=== PATIENT | female | born 1990 | race Asian ===

== ENCOUNTER 2021-07-04 14:46 | Emergency (ER) | payer BC, SELFPAY ==
--- NOTE | ~2021-07-04 | US_ITS ---
EXAMINATION: US ABDOMEN LIMITED CLINICAL INFORMATION: Right upper quadrant pain. COMPARISON: None TECHNIQUE: Real-time imaging of the right upper quadrant abdominal viscera. FINDINGS: PANCREAS: Normal. LIVER: Normal. The liver is normal in size. The liver contour is normal. Parenchymal echogenicity is normal. No focal hepatic lesion. There is no intrahepatic biliary duct dilatation seen. GALLBLADDER: Multiple gallbladder wall polyps are seen along with some echogenic debris in the gallbladder. The gallbladder is physiologically distended without evidence of stones wall thickening or pericholecystic fluid. COMMON BILE DUCT: Normal in caliber measuring 0.5 cm in diameter. RIGHT KIDNEY: Normal. No hydronephrosis. No renal calculi or focal parenchymal lesions. The kidney measures 11.3 cm in maximum dimension. FREE FLUID: None. US/US abdomen limited IMPRESSION: Gallbladder polyps. No gallstones or evidence of cholecystitis.
[2021-07-04 15:15] VITALS: BP 132/79; PULSE 94; RESP 16; TEMP 37.5; O2SAT 98; BMI 31.2
[2021-07-04 18:17] LABS: MANUAL DIFF FLAG NO
[2021-07-04 18:28] LABS: Basophils Percent Auto 0.3 % (0-2); Eosinophils Absolute Auto 0.1 X10*3/uL (0.0-0.4); Eosinophils Percent Auto 0.6 % (0-4); Hematocrit 40.8 % (37-47); Hemoglobin 13.9 g/dl (12.0-16.0); Imm Gran Abs Auto 0.04 X10*3/uL (0.00-0.03); Imm Gran Pct Auto 0.3 % (0.0-0.4); Lymphocytes Percent Auto 25.1 % (20-40); Mean Corpuscular HGB Conc 34.1 g/dl (31.0-35.0); Mean Corpuscular Hemoglobin 30.5 pg (27.0-33.0); Mean Corpuscular Volume 89.5 fL (80-98); Mean Platelet Volume 9.3 fL (9.4-12.3); Monocytes Absolute Auto 0.8 X10*3/uL (0.1-1.2); Monocytes Percent Auto 6.5 % (2-11); Neutrophils Absolute Auto 7.9 X10*3/uL (2.0-8.3); Neutrophils Percent Auto 67.2 % (45-73); Platelet Count 337 X10*3/uL (160-400); Red Blood Count 4.56 X10*6/uL (4.20-5.50); Red Cell Distribution Width 12.1 % (11.0-16.0); White Blood Count 11.8 X10*3/uL (4.8-10.8)
[2021-07-04 18:37] LABS: Anion Gap 14 (12-20); Blood Urea Nitrogen 11 mg/dL (9-16); Calcium 9.9 mg/dL (8.4-10.2); Carbon Dioxide 24 mmol/L (22-29); Chloride 104 mmol/L (96-108); Creatinine Clr Calc Pharmacy 100.6; Estimated Glomerular Filt Rate > 60; Glucose Random 88 mg/dL (60-115); Sodium 138 mmol/L (135-145)
[2021-07-04 20:15] LABS: Alanine Aminotransferase 12 U/L (0-31); Albumin Level 4.8 g/dL (3.5-5.0); Alkaline Phosphatase 56 U/L (39-117); Aspartate Amino Transferase 17 U/L (5-31); Bilirubin Direct 0.4 mg/dL (0.0-0.5); Bilirubin Total 0.9 mg/dL (0.0-1.0); Lipase 11 U/L (8-78); Total Protein 7.8 g/dL (6.5-8.0)
[2021-07-04 20:27] LABS: Appearance Urine CLEAR; Color Urine YELLOW; Glucose Urine UA NEG (NEG); Leukocyte Esterase Urine NEG (NEG); Nitrite Urine NEG (NEG); Specific Gravity - Urine 1.025 (1.005-1.025); UACC Culture Trigger NO; Urine Blood 2+ (NEG); Urine Ketones 40 MG/DL (NEG); Urine Protein TRACE MG/DL (NEG-TRACE)
[2021-07-04 20:29] LABS: UPreg QC Valid YES; Urine Pregnancy NEGATIVE (NEGATIVE)
--- NOTE | 2021-07-04 20:37 | ED_ITS ---
HPI - Abdominal Pain General Chief Complaint: Abdominal Pain Stated Complaint: abd pain - hx of gallbladder stones Time Seen by Provider: 07/04/21 19:26 Source: patient Mode of arrival: ambulatory Limitations: no limitations History of Present Illness HPI narrative: 31-year-old female here with complaints of right upper quadrant abdominal pain intermittent for the last week worsened with eating with occasional nausea. No vomiting, diarrhea, fevers, chills, urinary symptoms. Related Data Allergies Allergy/AdvReac Type Severity Reaction Status Date / Time No Known Allergies Allergy Verified 07/04/21 19:32 Review of Systems Review of Systems Yes all other systems are reviewed and are negative Constitutional: Reports no additional constitutional complaints, Denies body ache(s), Denies chills, Denies fever(s), Denies headache(s) and Denies weakness Eyes: Reports no additional eye complaints and Denies change in vision Reports system reviewed and no additional complaints, except as documented, Denies dizziness, Denies headache(s), Denies nasal congestion, Denies nasal discharge and Denies neck pain Cardiovascular: Reports no additional cardiovascular complaints, Denies chest pain, Denies leg edema and Denies dyspnea Respiratory: Reports no additional respiratory complaints, Denies cough and Denies dyspnea Gastrointestinal: Reports no additional gastrointestinal complaints, Denies abdominal pain, Denies diarrhea, Denies nausea and Denies vomiting Genitourinary: Reports no additional female genitourinary complaints and Denies urinary incontinence Musculoskeletal: Reports no additional musculoskeletal complaints, Denies back pain, Denies arthralgias, Denies joint swelling, Denies neck pain, Denies numbne ss and Denies tingling Skin/Breast: Reports system reviewed and no additional complaints, except as docu and Denies rash Reports system reviewed and no additional complaints, except as documented, Denies Abnormal speech present, Denies dizziness, Denies headache(s), Denies nu mbness, Denies tingling and Denies weakness Physical Exam Vital Signs: Vital Signs: Last Vital Signs Temp 98.7 F 07/04/21 20:52 Pulse 90 07/04/21 20:52 Resp 16 07/04/21 20:52 BP 125/77 07/04/21 20:52 Pulse Ox 98 07/04/21 20:52 Body Mass Index 31.2 Const: General: cooperative, healthy appearing, comfortable and no acute distress Orientation/consciousness: patient oriented x3 Limitations: no limitations HENMT: Head: Yes normal to inspection Ears: hearing grossly normal bilaterally General nose exam: Normal external nose present Face and sinus: Yes normal facial exam Mouth: Normal oral and palatal mucosa present Throat: Yes posterior oropharynx normal Eyes: General: appearance normal, both eyes and all related structures Pupils: Equal, round and reactive pupils present Neck: Neck: Yes normal visual inspection Chest: Chest palpation & inspection: normal inspection of the chest Resp: Effort & Inspection: normal respiratory effort Auscultation: clear to auscultation bilaterally Cardio: Rate: regular rate Rhythm: regular rhythm Peripheral pulses: Peripheral pulses 2+ throughout GI: Inspection: Yes normal to inspection Palpation (GI): Soft to palpation and Tenderness to palpation present (GI) (mild ruq-no rebound or guarding ) Auscultation: normal bowel sounds Back/Spine/Pelvis: Thoracic/Lumbar Spine: thoracic and lumbar spine normal to inspection Skin: General skin exam: no rashes or lesions noted Neuro: General: patient oriented x3, no focal motor deficits and normal sensation to monofilament Cranial nerves: Yes Equal, round and reactive pupils present Cognition (Neuro): normal cognition Speech: No Abnormal speech present Gait exam (Neuro): Normal gait present Motor exam (neuro): 5/5 motor strength present throughout Extrem: General: Yes normal to inspection Course Course Course Narrative: 31-year-old female here with complaints of intermittent right upper quadrant abdominal pain with some nausea for the last week. On exam she has mild tenderness but no rebound or guarding. Hemodynamically stable. Will check labs, UA, ultrasound. 2129-abdominal ultrasound shows some debris within the gallbladder and some polyps. No stones or acute cholecystitis. Labs including LFTs are normal. Urine shows no acute finding. Repeat abdominal exam benign Will refer patient to follow-up with surgery outpatient. Reviewed worrisome signs and symptoms of when to return to the emergency department. Comfortable discharge home. MDM - Abdominal Pain Medical Records Attestation: I reviewed the patient's medical records. Lab Data Attestation: I reviewed the patient's lab results. Result diagrams: 07/04/21 18:10 07/04/21 18:10 Labs: Lab Results 07/04/21 07/04/21 07/04/21 Range/Units 18:10 18:10 20:18 WBC 11.8 H (4.8-10.8) X10*3/uL RBC 4.56 (4.20-5.50) X10*6/uL Hgb 13.9 (12.0-16.0) g/dl Hct 40.8 (37-47) % MCV 89.5 (80-98) fL MCH 30.5 (27.0-33.0) pg MCHC 34.1 (31.0-35.0) g/dl RDW 12.1 (11.0-16.0) % Plt Count 337 (160-400) X10*3/uL MPV 9.3 L (9.4-12.3) fL Immature Gran % (Auto) 0.3 (0.0-0.4) % Neut % (Auto) 67.2 (45-73) % Lymph % (Auto) 25.1 (20-40) % Evangeline % (Auto) 6.5 (2-11) % Eos % (Auto) 0.6 (0-4) % Baso % (Auto) 0.3 (0-2) % Lymph # (Auto) 3.0 (1.2-4.9) X10*3/uL Evangeline # (Auto) 0.8 (0.1-1.2) X10*3/uL Eos # (Auto) 0.1 (0.0-0.4) X10*3/uL Baso # (Auto) 0.0 (0.0-0.2) X10*3/uL Abs Immat Gran (auto) 0.04 H (0.00-0.03) X10*3/uL Absolute Neuts (auto) 7.9 (2.0-8.3) X10*3/uL Absolute Nucleated RBC 0.000 (0.0-0.012) X10*3/uL Nucleated RBC % (auto) 0.0 (0.0-0.2) /100WBC Sodium 138 (135-145) mmol/L Potassium 4.0 (3.3-5.1) mmol/L Chloride 104 (96-108) mmol/L Carbon Dioxide 24 (22-29) mmol/L Anion Gap 14 (12-20) BUN 11 (9-16) mg/dL Creatinine 0.72 (0.5-1.4) mg/dL Estim Creat Clear Calc 100.6 Estimated GFR > 60 Random Glucose 88 (60-115) mg/dL Calcium 9.9 (8.4-10.2) mg/dL Total Bilirubin 0.9 (0.0-1.0) mg/dL Direct Bilirubin 0.4 (0.0-0.5) mg/dL AST 17 (5-31) U/L ALT 12 (0-31) U/L Alkaline Phosphatase 56 (39-117) U/L Total Protein 7.8 (6.5-8.0) g/dL Albumin 4.8 (3.5-5.0) g/dL Lipase 11 (8-78) U/L Urine Color YELLOW Urine Appearance CLEAR Urine pH 6.0 (5.0-8.0) Ur Specific Cyclone 1.025 (1.005-1.025) Urine Protein TRACE (NEG-TRACE) MG/DL Urine Glucose (UA) NEG (NEG) MG/DL Urine Ketones 40 (NEG) MG/DL Urine Blood 2+ H (NEG) Urine Nitrite NEG (NEG) Ur Leukocyte Esterase NEG (NEG) Urine RBC 0-2 (0) /HPF Urine WBC 0-2 (0-4) /HPF Ur Squamous Epith Cells TRACE /LPF Urine Bacteria 1+ /LPF Urine Mucus 1+ /LPF Urine Test (NEGATIVE) 07/04/21 Range/Units 20:18 WBC (4.8-10.8) X10*3/uL RBC (4.20-5.50) X10*6/uL Hgb (12.0-16.0) g/dl Hct (37-47) % MCV (80-98) fL MCH (27.0-33.0) pg MCHC (31.0-35.0) g/dl RDW (11.0-16.0) % Plt Count (160-400) X10*3/uL MPV (9.4-12.3) fL Immature Gran % (Auto) (0.0-0.4) % Neut % (Auto) (45-73) % Lymph % (Auto) (20-40) % Evangeline % (Auto) (2-11) % Eos % (Auto) (0-4) % Baso % (Auto) (0-2) % Lymph # (Auto) (1.2-4.9) X10*3/uL Evangeline # (Auto) (0.1-1.2) X10*3/uL Eos # (Auto) (0.0-0.4) X10*3/uL Baso # (Auto) (0.0-0.2) X10*3/uL Abs Immat Gran (auto) (0.00-0.03) X10*3/uL Absolute Neuts (auto) (2.0-8.3) X10*3/uL Absolute Nucleated RBC (0.0-0.012) X10*3/uL Nucleated RBC % (auto) (0.0-0.2) /100WBC Sodium (135-145) mmol/L Potassium (3.3-5.1) mmol/L Chloride (96-108) mmol/L Carbon Dioxide (22-29) mmol/L Anion Gap (12-20) BUN (9-16) mg/dL Creatinine (0.5-1.4) mg/dL Estim Creat Clear Calc Estimated GFR Random Glucose (60-115) mg/dL Calcium (8.4-10.2) mg/dL Total Bilirubin (0.0-1.0) mg/dL Direct Bilirubin (0.0-0.5) mg/dL AST (5-31) U/L ALT (0-31) U/L Alkaline Phosphatase (39-117) U/L Total Protein (6.5-8.0) g/dL Albumin (3.5-5.0) g/dL Lipase (8-78) U/L Urine Color Urine Appearance Urine pH (5.0-8.0) Ur Specific Cyclone (1.005-1.025) Urine Protein (NEG-TRACE) MG/DL Urine Glucose (UA) (NEG) MG/DL Urine Ketones (NEG) MG/DL Urine Blood (NEG) Urine Nitrite (NEG) Ur Leukocyte Esterase (NEG) Urine RBC (0) /HPF Urine WBC (0-4) /HPF Ur Squamous Epith Cells /LPF Urine Bacteria /LPF Urine Mucus /LPF Urine Test NEGATIVE (NEGATIVE) Imaging Data US - abdomen: Attestation: I personally reviewed and interpreted this imaging study as follows: Radiologist's impression: FINDINGS: PANCREAS: Normal. LIVER: Normal. The liver is normal in size. The liver contour is normal. Parenchymal echogenicity is normal. No focal hepatic lesion. There is no intrahepatic biliary duct dilatation seen. GALLBLADDER: Multiple gallbladder wall polyps are seen along with some echogenic debris in the gallbladder. The gallbladder is physiologically distended without evidence of stones wall thickening or pericholecystic fluid. COMMON BILE DUCT: Normal in caliber measuring 0.5 cm in diameter. RIGHT KIDNEY: Normal. No hydronephrosis. No renal calculi or focal parenchymal lesions. The kidney measures 11.3 cm in maximum dimension. FREE FLUID: None. US/US abdomen limited IMPRESSION: Gallbladder polyps. No gallstones or evidence of cholecystitis. Discharge Plan Discharge Clinical Impression: Gallbladder polyp, Abdominal pain Patient Disposition: Home, Self-Care Instructions: Biliary Colic (ED), Abdominal Pain (ED) Additional Instructions: Low-fat diet Follow-up with primary care doctor and surgery Referrals: Hortencia Millan NP [Primary Care Provider] - 2 days Lili Santiago MD [Physician] - 2 days Interventions: ED Discharge Assessment Last Done: 07/04/21 21:21 Discharge Date/Time: 07/04/21 21:22 [facility] Past Medical History Attestation statement: The following information was validated with the patient. Source: old records reviewed and nursing notes reviewed Social History Social History Advance Directives: No Advance Directives Information Provided: No
[2021-07-04 20:52] VITALS: BP 125/77; PULSE 90; RESP 16; TEMP 37.1; O2SAT 98
[2021-07-04 20:53] LABS: Bacteria Urine 1+ /LPF; Mucus Urine 1+ /LPF; RBC Urine 0-2 /HPF (0); Squamous Epithelial Cell Urine TRACE /LPF; WBC Urine 0-2 /HPF (0-4)
== END 2021-07-04 21:22 | disposition home or self-care (01) ==
PROVIDERS: Nurse Practitioner Family; Emergency Provider Emergency Medicine; PCP Nurse Practitioner Family
DX: K82.4 Cholesterolosis of gallbladder (principal); R10.11 Right upper quadrant pain; Z79.899 Other long term (current) drug therapy
CPT/HCPCS: 36415; 76705; 80048; 80076; 81001; 81025; 83690; 85025; 99283

== ENCOUNTER → 2021-08-04 14:05 | Outpatient (BNVA) | payer BC, SELFPAY | PROVIDERS: PCP Nurse Practitioner Family; Referring Provider Nurse Practitioner Family; Visit Provider Surgery ==

== ENCOUNTER 2022-05-19 07:40 | Outpatient (REF) | payer BC, SELFPAY ==
[2022-05-19 11:52] LABS: MANUAL DIFF FLAG NO
[2022-05-19 11:56] LABS: Appearance Urine CLEAR; Color Urine YELLOW; Glucose Urine UA NEG (NEG); Leukocyte Esterase Urine NEG (NEG); Nitrite Urine NEG (NEG); UACC Culture Trigger NO; Urine Blood 2+ (NEG); Urine Ketones NEG (NEG); Urine Protein NEG (NEG-TRACE)
[2022-05-19 12:09] LABS: Basophils Percent Auto 0.3 % (0-2); Eosinophils Absolute Auto 0.1 X10*3/uL (0.0-0.4); Eosinophils Percent Auto 1.1 % (0-4); Hemoglobin 13.6 g/dl (12.0-16.0); Imm Gran Abs Auto 0.03 X10*3/uL (0.00-0.03); Imm Gran Pct Auto 0.3 % (0.0-0.4); Lymphocytes Absolute Auto 1.9 X10*3/uL (1.2-4.9); Lymphocytes Percent Auto 20.5 % (20-40); Mean Corpuscular HGB Conc 33.2 g/dl (31.0-35.0); Mean Corpuscular Hemoglobin 29.4 pg (27.0-33.0); Mean Corpuscular Volume 88.7 fL (80.0-98.0); Mean Platelet Volume 9.7 fL (9.4-12.3); Monocytes Absolute Auto 0.8 X10*3/uL (0.1-1.2); Monocytes Percent Auto 9.1 % (2-11); Neutrophils Absolute Auto 6.3 x10*3/uL (2.0-8.3); Neutrophils Percent Auto 68.7 % (45-73); Platelet Count 401 X10*3/uL (160-400); Red Blood Count 4.62 X10*6/uL (4.20-5.50); Red Cell Distribution Width 12.4 % (11.0-16.0); White Blood Count 9.1 X10*3/uL (4.8-10.8)
[2022-05-19 12:36] LABS: Alanine Aminotransferase 14 U/L (0-31); Albumin Level 4.6 g/dL (3.5-5.0); Alkaline Phosphatase 73 U/L (39-117); Anion Gap 13 (12-20); Aspartate Amino Transferase 16 U/L (5-31); Bilirubin Total 0.8 mg/dL (0.0-1.0); Blood Urea Nitrogen 7 mg/dL (9-16); Calcium 9.2 mg/dL (8.4-10.2); Carbon Dioxide 25 mmol/L (22-29); Chloride 103 mmol/L (96-108); Cholesterol 173 mg/dL; Estimated Glomerular Filt Rate > 60; Glucose Fasting 92 mg/dL (60-99); HDL Cholesterol 58 mg/dL; LDL Cholesterol Calculated 96 mg/dl; Potassium 3.7 mmol/L (3.3-5.1); Sodium 137 mmol/L (135-145); Total Protein 7.8 g/dL (6.5-8.0); Triglycerides 97 mg/dL
[2022-05-19 12:37] LABS: Squamous Epithelial Cell Urine 2+ /LPF; WBC Urine 0-2 /HPF (0-4)
[2022-05-19 12:47] LABS: TSH reflex Free T4 0.99 uIU/mL (0.32-4.0)
== END 2022-05-19 07:41 | disposition home or self-care (01) ==
LOC: HO.HMGCLDS 07:40
PROVIDERS: PCP Nurse Practitioner Family; Visit Provider Nurse Practitioner Family
DX: Z00.00 Encounter for general adult medical examination without abnormal findings (principal)
CPT/HCPCS: 36415; 80053; 80061; 81001; 84443; 85025

== ENCOUNTER 2022-06-22 13:30 | Outpatient (REF) | payer BC, SELFPAY ==
[2022-06-22 16:52] LABS: Urine Cytology See Pathology rpt
[2022-06-22 16:58] LABS: Appearance Urine Clear; Color Urine Yellow; Glucose Urine UA Negative (Negative); Leukocyte Esterase Urine Negative (Negative); Nitrite Urine Negative (Negative); PH 7.5 (5.0-9.0); Specific Gravity - Urine <= 1.005 (1.005-1.025); Urine Blood Negative (Negative); Urine Ketones Negative (Negative); Urine Protein Negative (Neg-Trace)
[2022-06-22 17:02] LABS: Bacteria Urine None Seen (None Seen); Hyaline Casts Urine 0-2 /LPF (0-2); RBC Urine 0-2 /HPF (0-2); Squamous Epithelial Cell Urine 0-2 /HPF (0-2); WBC Urine 0-5 /HPF (0-5)
== END 2022-06-22 13:31 | disposition home or self-care (01) ==
LOC: HO.HMGCLDS 13:30
PROVIDERS: PCP Nurse Practitioner Family; Visit Provider Nurse Practitioner Family
DX: R31.29 Other microscopic hematuria (principal)
CPT/HCPCS: 81001; 87086; 88112

== ENCOUNTER 2022-07-20 13:27 | Outpatient (REF) | payer BC, SELFPAY ==
--- NOTE | ~2022-07-20 | US_ITS ---
EXAMINATION: US ABDOMEN LIMITED CLINICAL INFORMATION: Cholesterolosis of the gallbladder. COMPARISON: Ultrasound abdomen limited 07/04/2021. TECHNIQUE: Real-time imaging of the right upper quadrant abdominal viscera. FINDINGS: PANCREAS: Normal. LIVER: Normal. The liver is normal in size. The liver contour is normal. Parenchymal echogenicity is normal. No focal hepatic lesion. There is no intrahepatic biliary duct dilatation seen. GALLBLADDER: Normal. The gallbladder is physiologically distended without evidence of stones, sludge, polyps, wall thickening or pericholecystic fluid. COMMON BILE DUCT: Normal in caliber measuring 0.48 cm in diameter. RIGHT KIDNEY: Normal. No hydronephrosis. No renal calculi or focal parenchymal lesions. The kidney measures 10.4 cm in maximum dimension. FREE FLUID: None. US/US abdomen limited IMPRESSION: Unremarkable limited abdomen ultrasound. No gallbladder polyps seen on this time. Could the polyps seen on the previous exam represent hypertrophic mucosa or stones at that time.
== END 2022-07-20 13:28 | disposition home or self-care (01) ==
LOC: HO.US 13:27
PROVIDERS: Absent Provider Nurse Practitioner Family; PCP Nurse Practitioner Family; Visit Provider Surgery
DX: K82.4 Cholesterolosis of gallbladder (principal)
CPT/HCPCS: 76705

== ENCOUNTER 2022-09-23 07:34 | Emergency (ER) | payer BC, SELFPAY ==
--- NOTE | ~2022-09-23 | US_ITS ---
EXAMINATION: US RETROPERITONEAL LIMITED (RENAL ONLY) CLINICAL INFORMATION: Right flank pain and urinary symptoms. Evaluate for stone pyelonephritis.. COMPARISON: Prior ultrasound most recent July 2022. TECHNIQUE: Grayscale Doppler and color flow imaging of the kidneys was performed. FINDINGS: RIGHT KIDNEY: 11.4 x 4.3 x 5.7 cm (SAG x AP x TRV). The kidney is normal in size, contour, and echogenicity. Renal cortical thickness is normal. No calculi or focal parenchymal lesions. No hydronephrosis. LEFT KIDNEY: 10.8 x 5.1 x 6.6 cm (SAG x AP x TRV). The kidney is normal in size, contour, and echogenicity. Renal cortical thickness is normal. No calculi or focal parenchymal lesions. No hydronephrosis. US/US renal BI IMPRESSION: Normal renal ultrasound. No urinary tract calculi or evidence for pyelonephritis
[2022-09-23 07:35] VITALS: BP 146/89; PULSE 96; RESP 20; TEMP 36.7; O2SAT 100; BMI 29.2
[2022-09-23 07:56] LABS: Appearance Urine Clear; Color Urine Yellow; Glucose Urine UA Negative (Negative); Leukocyte Esterase Urine Negative (Negative); Nitrite Urine Negative (Negative); Specific Gravity - Urine 1.015 (1.005-1.025); UMIC TRIGGER UACC YES; Urine Blood Moderate (2+) (Negative); Urine Ketones Negative (Negative); Urine Protein Negative (Neg-Trace)
[2022-09-23 08:00] LABS: UPreg QC Valid YES; Urine Pregnancy NEGATIVE (NEGATIVE)
[2022-09-23 08:01] LABS: Bacteria Urine None Seen (None Seen); Hyaline Casts Urine 0-2 /LPF (0-2); Squamous Epithelial Cell Urine 0-2 /HPF (0-2); WBC Urine 0-5 /HPF (0-5)
--- NOTE | 2022-09-23 08:03 | ED_ITS ---
HPI - Female Genitourinary General Chief complaint: Urogenital-Female Stated complaint: back pain Time Seen by Provider: 09/23/22 08:02 Source: patient Mode of arrival: ambulatory Limitations: no limitations History of Present Illness HPI Narrative: 32 yo female w/ PMHx pyelonephritis presenting to ED c/o 2 day hx of urinary frequency and flank pain. Denies dysuria, blood in the urine, vaginal discharge/bleeding, irregular menstrual periods, new sexual contact, fevers, chills, headache, SOB, chest pain, abd pain, N/V/D, body aches, rashes, or skin changes. MD elicited complaint: flank pain Onset (ago): day(s) Related Data Home Medications Medication Instructions Recorded Confirmed cholecalciferol (vitamin D3) 50 50 mcg PO DAILY 08/04/21 05/18/22 mcg (2,000 unit) capsule Allergies Allergy/AdvReac Type Severity Reaction Status Date / Time No Known Allergies Allergy Verified 09/19/22 10:42 Review of Systems Review of Systems: Constitutional: No Fever, No Chills, No Night Sweats, No Fatigue, No Malaise ENT/Mouth: No Ear Pain, No Nasal Congestion Eyes: No Eye Pain, No Swelling, No Redness Cardiovascular: No Chest Pain, No SOB, No Palpitations Respiratory: No Cough, No Sputum, No Dyspnea Gastrointestinal: No Nausea, No Vomiting, No Diarrhea, No Constipation, No Abdominal pain Genitourinary: No irregular bleeding, No Dysuria, + Urinary Frequency, No Hematuria, No Urinary Incontinence/retention, No Urgency, + R Flank Pain Musculoskeletal: No joint pain, No Myalgias, No Joint Swelling Skin: No Skin Lesions, No rash Neuro: No Weakness, No Numbness, No Paresthesias, No Headache Yes all other systems are reviewed and are negative Constitutional: Constitutional: Reports as per [facility] [place] Past Medical History Attestation statement: The following information was validated with the patient. Surgical History History of delivery (10/04/19) Social History Social History Housing: House Alcohol intake: current Patient Tobacco Use Status: Never used Tobacco e-Cigarette/Vaping Use: Never Used Second Hand Smoke Exposure: No Advance Directives: No Advance Directives Information Provided: No service: No Current occupational status: employed and unemployed Cognitive needs: No Hearing needs: No Vision needs: No Physical Exam Vital Signs: Vital Signs: Last Vital Signs Temp 98.1 F 09/23/22 07:35 Pulse 96 09/23/22 07:35 Resp 20 09/23/22 07:35 BP 146/89 H 09/23/22 07:35 Pulse Ox 100 09/23/22 07:35 O2 Del Method 09/23/22 07:35 BMI result Body Mass Index 29.2 Const: General: cooperative, healthy appearing, comfortable and no acute distress Orientation/consciousness: patient oriented x3 Limitations: no limitations HEENT: Head: Yes normal to inspection and Yes atraumatic Ears: hearing grossly normal bilaterally General nose exam: Normal external nose present Face and sinus: Yes normal facial exam Eyes: General: appearance normal, both eyes and all related structures Neck: Neck: Yes normal visual inspection Chest: Chest palpation & inspection: normal inspection of the chest Resp: Effort & Inspection: normal respiratory effort and no respiratory distress Auscultation: clear to auscultation bilaterally Cardio: Rate: regular rate Heart sounds: S1 normal heart sound present and S2 normal heart sound present GI: Inspection: Yes normal to inspection Palpation (GI): Soft to palpation, nontender, no guarding and not rigid : General: Yes CVA tenderness on the right Back/Spine/Pelvis: Back: CVA tenderness Thoracic/Lumbar Spine: thoracic and lumbar spine normal to inspection, No paraspinal muscle tenderness, No thoracic spinal tenderness and No lumbar spinal tenderness Skin: General skin exam: no rashes or lesions noted Rashes: no rashes Neuro: General: patient oriented x3 and tone normal Gait exam (Neuro): Normal gait present Extrem: General: Yes normal to inspection Course Course Course Narrative: -1000--labs unremarkable. UA with blood and rbc's, not infected US renal BI IMPRESSION: Normal renal ultrasound. No urinary tract calculi or evidence for pyelonephritis ? > Results discussed with patient including worrisome signs and symptoms and strict return precautions, and when to return to the emergency department. They verbalized understanding and feel safe for discharge at this time. Medical Decision Making Medical Decision Making MDM Narrative: 32 yo female w/ PMHx pyelonephritis presenting to ED c/o 2 day hx of urinary frequency and flank pain. On exam vital signs stable, NAD, nontoxic appearing, abdomen soft/nontender, mild R CVAT noted. Concern for UTI vs cystitis vs pyelonephritis vs renal stone. Low suspicion for ovarian torsion/appendicitis/diverticulitis or cholecystitis Plan: UA, , labs, renal ultrasound Differential Diagnoses: Differential diagnosis (as above) Lab Attestation: I reviewed the patient's lab results. Discharge Plan Discharge Clinical Impression: Microscopic hematuria Patient Disposition: Home, Self-Care Instructions: Hematuria (ED) Prescriptions: No Action cholecalciferol (vitamin D3) 50 mcg (2,000 unit) capsule 50 mcg PO DAILY
[2022-09-23 09:06] LABS: MANUAL DIFF FLAG NO
[2022-09-23 09:10] LABS: Basophils Percent Auto 0.2 % (0-2); Eosinophils Absolute Auto 0.1 X10*3/uL (0.0-0.4); Eosinophils Percent Auto 0.8 % (0-4); Imm Gran Abs Auto 0.03 X10*3/uL (0.00-0.03); Imm Gran Pct Auto 0.3 % (0.0-0.4); Mean Corpuscular HGB Conc 33.3 g/dl (31.0-35.0); Mean Corpuscular Hemoglobin 28.8 pg (27.0-33.0); Mean Corpuscular Volume 86.5 fL (80.0-98.0); Mean Platelet Volume 9.4 fL (9.4-12.3); Monocytes Absolute Auto 0.6 X10*3/uL (0.1-1.2); Monocytes Percent Auto 5.9 % (2-11); Neutrophils Absolute Auto 8.1 x10*3/uL (2.0-8.3); Neutrophils Percent Auto 74.8 % (45-73); Platelet Count 349 X10*3/uL (160-400); Red Blood Count 4.51 X10*6/uL (4.20-5.50); Red Cell Distribution Width 12.7 % (11.0-16.0); White Blood Count 10.9 X10*3/uL (4.8-10.8)
[2022-09-23 09:30] LABS: Alanine Aminotransferase 14 U/L (0-31); Albumin Level 4.4 g/dL (3.5-5.0); Alkaline Phosphatase 60 U/L (39-117); Anion Gap 12 (12-20); Aspartate Amino Transferase 14 U/L (5-31); Bilirubin Direct 0.3 mg/dL (0.0-0.5); Blood Urea Nitrogen 11 mg/dL (9-16); Calcium 9.3 mg/dL (8.4-10.2); Carbon Dioxide 24 mmol/L (22-29); Chloride 105 mmol/L (96-108); Creatinine Clr Calc Pharmacy 115.9; Estimated Glomerular Filt Rate > 60; Glucose Random 100 mg/dL (60-115); Potassium 3.7 mmol/L (3.3-5.1); Sodium 137 mmol/L (135-145); Total Protein 7.3 g/dL (6.5-8.0)
== END 2022-09-23 10:12 | disposition home or self-care (01) ==
PROVIDERS: Physician Assistant; Emergency Provider Emergency Medicine; PCP Nurse Practitioner Family
DX: R31.29 Other microscopic hematuria (principal); R10.9 Unspecified abdominal pain
CPT/HCPCS: 36415; 76775; 80048; 80076; 81001; 81025; 85025; 99282; 99284

== ENCOUNTER 2022-09-26 15:16 | Outpatient (REF) | payer BC, SELFPAY ==
[2022-09-27 11:51] LABS: BV Int Neg Control Negative (Negative); BV Int Pos Control Positive (Positive)
== END 2022-09-26 15:17 | disposition home or self-care (01) ==
LOC: HO.LNP 15:16
PROVIDERS: Visit Provider Advanced Practice Midwife
DX: Z01.419 Encounter for gynecological examination (general) (routine) without abnormal findings (principal); R31.9 Hematuria, unspecified
CPT/HCPCS: 81003; 87480; 87510; 87660

== ENCOUNTER 2022-09-26 15:30 | Outpatient (REF) | payer BC, SELFPAY ==
[2022-09-26 17:16] LABS: Appearance Urine Clear; Color Urine Yellow; Glucose Urine UA Negative (Negative); Leukocyte Esterase Urine Negative (Negative); Nitrite Urine Negative (Negative); UMIC TRIGGER UACC YES; Urine Blood Small (1+) (Negative); Urine Ketones Negative (Negative); Urine Protein Negative (Neg-Trace)
[2022-09-26 17:31] LABS: Bacteria Urine None Seen (None Seen); Hyaline Casts Urine 0-2 /LPF (0-2); Squamous Epithelial Cell Urine 0-2 /HPF (0-2); WBC Urine 0-5 /HPF (0-5)
[2022-09-27 09:25] LABS: CT PCR NOT DETECTED (Not Detect.); NG PCR NOT DETECTED (Not Detect.)
== END 2022-09-26 15:31 | disposition home or self-care (01) ==
LOC: HO.LAB 15:30
PROVIDERS: PCP Nurse Practitioner Family; Visit Provider Advanced Practice Midwife
DX: Z11.3 Encounter for screening for infections with a predominantly sexual mode of transmission (principal); R31.9 Hematuria, unspecified
CPT/HCPCS: 81001; 81003; 87491; 87591

== ENCOUNTER → 2022-10-03 07:29 | Outpatient (REF) | payer BC, SELFPAY ==
--- NOTE | 2022-10-03 07:30 | HM_ITS ---
* Total monitoring time about 3 days. * Underlying rhythm is sinus. Average ventricular rate 91/Min. Range 59 to 140/Min. * About 23% of the time, rate > 100/Min. * No significant ectopy. * No significant tachyarrhythmias. * No significant bradycardia or pauses. * Rapid/fast heartbeat noted in diary correlates with sinus tachycardia. MTDD
== END ==
LOC: HO.CARD 07:29
PROVIDERS: PCP Nurse Practitioner Family; Visit Provider Nurse Practitioner Family
DX: R00.2 Palpitations (principal)
CPT/HCPCS: 93242

== ENCOUNTER 2022-12-14 08:59 | Outpatient (REF) | payer BC, SELFPAY ==
[2022-12-14 16:38] LABS: Urine Cytology See Pathology rpt
== END 2022-12-14 09:00 | disposition home or self-care (01) ==
LOC: HO.LAB 08:59
PROVIDERS: PCP Nurse Practitioner Family; Visit Provider Nurse Practitioner Family
DX: R31.29 Other microscopic hematuria (principal); R10.31 Right lower quadrant pain; R10.32 Left lower quadrant pain
CPT/HCPCS: 88112

== ENCOUNTER 2022-12-14 15:00 | Outpatient (RCR) | payer BC, SELFPAY ==
--- NOTE | 2022-11-30 17:00 | MHC.PT.EP ---
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 Pt is deemed an appropriate candidate to receive skilled PT services to address their physical impairments in order to improve their functional ability. Frequency and Duration: The patient will be seen 1 x / wk x 5 wks. Short Term Goals: initiate HEP Intermediate Goals: Pt will report at least 50% improvement in ear ringing symptom. Pt will no longer demonstrate S pattern of motion with mandibular depression AROM. Pt will report no longer having discomfort with prolonged chewing. I with home program. Treatment Plan: Modalities to reduce pain, spasms and effusion. Manual therapy to restore motion and function. Therapeutic exercise to improve strength and flexibility. Neuromuscular re-education for posture and balance. Therapeutic activities to return to functional activities of daily living. Electronically signed by: Lazaro Lucas PT. Please sign and return to therapist. Thank you for your referral.
--- NOTE | 2023-01-23 15:52 | MHC.PT.DC ---
[facility] [place] Office [place] Office [place] Office [address] Edy Martell [address] [phone] F: [phone] F: [phone] F: [phone] F: [phone] Physical Therapy Discharge Report Diagnosis: TMD Date of Surgery: Date of Evaluation: 11/23/22 Date of Discharge: 01/23/23 Treatments to Date: 3 Cancellations to Date: No Shows to Date: Discharge Status: Independent with HEP Patient Elected to Stop Discharge Summary: From last treatment note; Pt did not follow up with therapy after her last visit: Reviewed rocobado series and addressed questions. reviewed cervical stretches. She now presents with J presentation of jaw which may be an improvement form the S shape initially. She reports her jaw clicking is less, her L ear ringing is a little less though has been experiencing some ringing of her R oddly. Added postural strengthening exercises and issued G TB. Pt largely I with her program and may wish to DC after today or her next visit and will call. Electronically signed by: Lazaro Lucas PT. Please sign and return to therapist. Thank you for your referral.
== END 2023-01-23 15:52 | disposition home or self-care (01) ==
LOC: HO.PTCHIC 15:00
PROVIDERS: PCP Nurse Practitioner Family; Visit Provider Nurse Practitioner Family
DX: M26.602 Left temporomandibular joint disorder, unspecified (principal)
CPT/HCPCS: 97110; 97140; 97161

== ENCOUNTER → 2023-01-11 09:20 | Outpatient (BNVA) | payer BC, SELFPAY | PROVIDERS: PCP Nurse Practitioner Family; Visit Provider Urology | DX: R31.29 Other microscopic hematuria (principal) | CPT/HCPCS: 52000 ==

== ENCOUNTER 2023-06-06 10:20 | Outpatient (AMB) | payer BC, SELFPAY ==
[2023-06-06 10:28] VITALS: BP 122/78; PULSE 88; O2SAT 98; BMI 29.6
--- NOTE | 2023-06-06 10:28 | A.OFFPC_ITS ---
Vital Signs 06/06/23 10:28 Height 5 ft 4 in Weight 172 lb 6 oz BMI 29.6 BP 122/78 Blood Pressure Location Rt brachial Position Sitting Pulse 88 Pulse Source Pulse Oximeter Pulse Oximetry (%) 98 Oxygen Delivery Method Room Air Intake Visit Reasons: PE Allergies lavender (Lavandula angustifolia) Adverse Reaction (Mild, Verified 06/06/23 10:31) unknown Medication List - Last Reconciled 06/06/23 by ILIANA Serna betamethasone dipropionate 0.05% 1 appl topical DAILY PRN cholecalciferol (vitamin D3) 50 mcg PO DAILY metoprolol succinate ER 12.5 mg (1/2 x 25 mg) PO DAILY 30 days Tobacco use date assessed: 06/06/23 Dental Screening Dental Screen Date: 06/06/23 Did you have a dental visit in the last 12 months?: Yes Did you have a dental problem in the last 6 months where you did not have access to dental care?: No Was dental information given to patient?: Patient has dentist HPI PE HPI Details Pt is here for a PE. Will order labs. 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 Pt reports ? anxiety. She reports that this is most likely the cause of her tachycardia. Holter showed sinus tach, Will start metoprolol 12.5mg (which was sent previously but she had not tried it). She will follow up with me via the portal in the very near future, and i will see her again in 6 months. Any questions or concerns she knows to call the office. [facility] Surgical History History of delivery (10/04/19) Social History Housing: House Alcohol intake: current Patient Tobacco Use Status: Never used Tobacco e-Cigarette/Vaping Use: Never Used Second Hand Smoke Exposure: No service: No Current occupational status: employed and unemployed Cognitive needs: No Hearing needs: No Vision needs: No Female Reproductive History Menstrual Age of Menarche: 12 Questionnaire Thrive Questionnaire Date Thrive assessed: 05/18/22 GEOVANI-7 AMB Questionnaire GEOVANI-7 Date GEOVANI - 7 assessed: 05/18/22 Source: Developed by Drs. Miguel LDaniela Sutton, Esdras Singh and colleagues, with an educational luis manuel from [employer]. Review of Systems Const Denies chills and Denies fever(s) Eyes Denies blurry vision ENT Denies vertigo, Denies dizziness and Denies sore throat Card Denies chest pain at rest, Denies chest pain with activity, Denies diaphoresis, Denies dyspnea and Denies dyspnea on exertion Resp Denies cough, Denies dyspnea, Denies dyspnea on exertion and Denies wheezing GI Denies abdominal pain, Denies melena, Denies hematochezia, Denies constipation, Denies diarrhea and Denies loose stools Denies hematuria Musc Denies numbness and Denies tingling Skin/Breast Denies lesions Neuro Denies vertigo, Denies dizziness, Denies numbness and Denies tingling Psych Denies anxiety, Denies depression, Denies homicidal ideation, Denies suicidal ideation and Denies other (substance abuse) Aller/Immun Denies wheezing Physical exam (Primary Care) Vital Signs: Last Vital Signs Pulse 88 06/06/23 10:28 BP 122/78 06/06/23 10:28 Pulse Ox 98 06/06/23 10:28 Oxygen Delivery Method Room Air 06/06/23 10:28 BMI result Body Mass Index 29.6 Tobacco/Smoking Status: Tobacco use Status Tobacco use date assessed 06/06/23 06/06/23 10:34 Patient Tobacco Use Status Never used Tobacco 06/06/23 10:28 e-Cigarette/Vaping Use Never Used 06/06/23 10:28 Thrive Assessment: Date of Thrive Assessment Date Thrive assessed 05/18/22 06/06/23 10:28 Const General: cooperative Nutritional Appearance: well nourished Orientation/consciousness: patient oriented x3 HENMT Head: Yes normal to inspection, Yes normocephalic and Yes atraumatic Ears: TM's normal bilaterally Eyes General: appearance normal, both eyes and all related structures Alignment and Position: alignment normal and position normal Neck Neck: Yes normal visual inspection and Yes no lymphadenopathy Thyroid: Thyroid normal Resp Effort & Inspection: normal respiratory effort Auscultation: clear to auscultation bilaterally Cardio Rate: regular rate Rhythm: regular rhythm Heart sounds: S1 normal heart sound present, S2 normal heart sound present and no murmurs GI Palpation (GI): Soft to palpation and nontender Auscultation: normal bowel sounds Skin Rashes: no rashes Neuro General: patient oriented x3, moves all extremities, no focal motor deficits and deep tendon reflexes 2+ bilaterally Romberg Test: Negative Psych Appearance: grossly normal Mental Status: mental status grossly normal Speech and movement: Normal speech and movement present Affect: normal affect Attitude: cooperative Thought process: Normal thought process present Thought content: Normal thought content present Insight: Good insight present (Psych) Judgement: Good judgement present (Psych) Assessment and Plan Assessment & Plan (1) Physical exam: Code(s): Z00. - Encounter for general adult medical examination without abnormal findings Orders: Orders Comprehensive [place]. Panel Fast Today Z. - Encounter for general adult medical examination without abnormal findings Lipid Panel Today Z00.00 - Encounter for general adult medical examination without abnormal findings TSH reflex Free T4 Today Z00.00 - Encounter for general adult medical examination without abnormal findings Complete Blood Count Auto Diff Today Z00.00 - Encounter for general adult medical examination without abnormal findings UA CC w/rflx Micro + Cult Today Z00.00 - Encounter for general adult medical examination without abnormal findings Medications: New metoprolol succinate ER 12.5 mg (1/2 x 25 mg) PO DAILY 30 days 15 tabs 1RF Coding Level of Care Code Est Pt Prev Care 18-39y(69564) Diagnoses Physical exam Z00.00
== END 2023-06-06 11:43 | disposition home or self-care (01) ==
PROVIDERS: Visit Provider Nurse Practitioner Family
DX: Z00.00 Encounter for general adult medical examination without abnormal findings (principal)
CPT/HCPCS: 99395

== ENCOUNTER 2023-06-07 08:08 | Outpatient (REF) | payer BC, SELFPAY ==
[2023-06-07 11:21] LABS: MANUAL DIFF FLAG NO
[2023-06-07 11:48] LABS: Basophils Absolute Auto 0.1 X10*3/uL (0.0-0.2); Basophils Percent Auto 0.6 % (0-2); Eosinophils Absolute Auto 0.2 X10*3/uL (0.0-0.4); Eosinophils Percent Auto 2.5 % (0-4); Hematocrit 38.4 % (37.0-47.0); Hemoglobin 12.9 g/dl (12.0-16.0); Imm Gran Abs Auto 0.03 X10*3/uL (0.00-0.03); Imm Gran Pct Auto 0.3 % (0.0-0.4); Lymphocytes Absolute Auto 2.4 X10*3/uL (1.2-4.9); Mean Corpuscular HGB Conc 33.6 g/dl (31.0-35.0); Mean Corpuscular Hemoglobin 30.6 pg (27.0-33.0); Mean Corpuscular Volume 91.2 fL (80.0-98.0); Mean Platelet Volume 9.8 fL (9.4-12.3); Monocytes Absolute Auto 0.7 X10*3/uL (0.1-1.2); Monocytes Percent Auto 7.5 % (2-11); Neutrophils Absolute Auto 5.5 x10*3/uL (2.0-8.3); Neutrophils Percent Auto 62.1 % (45-73); Platelet Count 396 X10*3/uL (160-400); Red Blood Count 4.21 X10*6/uL (4.20-5.50); Red Cell Distribution Width 13.1 % (11.0-16.0); White Blood Count 8.8 X10*3/uL (4.8-10.8)
[2023-06-07 12:11] LABS: Alanine Aminotransferase 14 U/L (0-31); Albumin Level 4.3 g/dL (3.5-5.0); Alkaline Phosphatase 56 U/L (39-117); Anion Gap 11 (12-20); Aspartate Amino Transferase 19 U/L (5-31); Bilirubin Total 0.7 mg/dL (0.0-1.0); Blood Urea Nitrogen 12 mg/dL (9-16); Calcium 9.3 mg/dL (8.4-10.2); Carbon Dioxide 26 mmol/L (22-29); Chloride 104 mmol/L (96-108); Cholesterol 181 mg/dL (<200); Estimated Glomerular Filt Rate > 60; Glucose Fasting 99 mg/dL (60-99); HDL Cholesterol 63 mg/dL (>40); LDL Cholesterol Calculated 93 mg/dL (<100); Potassium 3.5 mmol/L (3.3-5.1); Sodium 137 mmol/L (135-145); Total Protein 7.7 g/dL (6.5-8.0); Triglycerides 125 mg/dL (<150)
[2023-06-07 12:32] LABS: TSH reflex Free T4 1.26 uIU/mL (0.32-4.0)
[2023-06-07 13:39] LABS: Appearance Urine Clear; Color Urine Yellow; Glucose Urine UA Negative (Negative); Leukocyte Esterase Urine Negative (Negative); Nitrite Urine Negative (Negative); PH 7.5 (5.0-9.0); Specific Gravity - Urine <= 1.005 (1.005-1.025); Urine Blood Negative (Negative); Urine Ketones Negative (Negative); Urine Protein Negative (Neg-Trace)
== END 2023-06-07 08:09 | disposition home or self-care (01) ==
LOC: HO.HMGCLDS 08:08
PROVIDERS: PCP Nurse Practitioner Family; Visit Provider Nurse Practitioner Family
DX: Z00.00 Encounter for general adult medical examination without abnormal findings (principal); Z20.2 Contact with and (suspected) exposure to infections with a predominantly sexual mode of transmission; Z13.29 Encounter for screening for other suspected endocrine disorder; Z13.220 Encounter for screening for lipoid disorders
CPT/HCPCS: 36415; 80053; 80061; 81003; 84443; 85025

== ENCOUNTER 2023-07-12 12:35 | Outpatient (REF) | payer BC, SELFPAY | END 2023-07-12 12:36 | disposition home or self-care (01) | LOC: HO.LAB 12:35 | PROVIDERS: PCP Nurse Practitioner Family; Visit Provider Advanced Practice Midwife | DX: Z13.89 Encounter for screening for other disorder (principal) ==

== ENCOUNTER 2023-07-12 12:35 | Outpatient (AMB) | payer BC, SELFPAY ==
--- NOTE | 2023-07-12 12:45 | A.OFFVIS_ITS ---
Intake Vital Signs 07/12/23 12:46 Height 5 ft 4 in Weight 169 lb BMI 29.0 BP 100/64 Intake Visit Reasons: Vaginal discharge/ok Per Nicole Intake Note: pt c/o vag discharge and odor The patient agreed to use of a durable medical equipment technician during this encounter. Scribed for MURALI Thompson by Sara Be durable medical equipment technician, on 07/12/2023 at 1:03 pm EST. Hydraulic Specialist: Hydraulic Specialist Present (Shirley) Allergies lavender (Lavandula angustifolia) Adverse Reaction (Mild, Verified 07/12/23 12:46) unknown Is last menstrual period known: Yes Last menstrual period: 06/25/23 HPI HPI Comments History of Present Illness Details She is here with complains of slight brown vaginal discharge with vaginal odor, spotting in between menses and occasional sharp pelvic pain. Delay of her menses a few day with COVID, but these symptoms were pre COVID. Denies urinary symptoms. Is not using BC. [facility] Medical History Abnormal uterine bleeding (AUB) Surgical History History of delivery (10/04/19) Social History Housing: House Alcohol intake: current Patient Tobacco Use Status: Never used Tobacco e-Cigarette/Vaping Use: Never Used Second Hand Smoke Exposure: No service: No Current occupational status: employed and unemployed Cognitive needs: No Hearing needs: No Vision needs: No Female Reproductive History Menstrual Age of Menarche: 12 Duration of menses: 6-7 days Date of last menstrual period: 06/25/23 Physical Exam Vital Signs: Last Vital Signs BP 100/64 07/12/23 12:46 BMI result Body Mass Index 29.0 Const General: cooperative, healthy appearing, comfortable, no acute distress, well developed, alert and awake Other: General: Yes bladder normal to palpation External Female Exam: normal external appearance and normal appearance of the urethra Speculum Exam - Vagina: normal appearance of the vagina, normal palpation and normal vaginal discharge Speculum Exam - Cervix: normal appearance of the cervix, normal palpation and Other cervical findings present (clear ovulatory type mucus) Bimanual exam- vagina & uterus: normal bimanual exam, normal palpation, bladder normal to palpation and normal palpation Bimanual Exam- Adnexa, other: normal adnexae and no masses Assessment & Plan Assessment & Plan (1) Vaginal discharge: Code(s): N89.8 - Other specified noninflammatory disorders of vagina Plan: Discussed: BV testing and GC/CT panel done today. Await results and treat accordingly. All of her questions and concerns were addressed to the best of my ability and shared decision making. She is agreeable to plan of care. (2) Abnormal uterine bleeding (AUB): Code(s): N93.9 - Abnormal uterine and vaginal bleeding, unspecified Plan: Pelvic US ordered. Follow up via tele-visit for results optional. Monitor periods, report any unscheduled bleeding, bleeding episodes less than 21 days apart or heavy prolonged menstrual bleeding. (3) Vaginal odor: Code(s): N89.8 - Other specified noninflammatory disorders of vagina (4) Pelvic pain: Code(s): R10.2 - Pelvic and perineal pain Orders: Orders Bacterial Vaginosis Panel Today N89.8 - Other specified noninflammatory disorder s of vagina CT NG by PCR Today N89.8 - Other specified noninflammatory disorders of vagina US pelvic and transvaginal Today N93.9 - Abnormal uterine and vaginal bleeding, unspecified Coding Level of Care Code Est Pt Level 3 (34335) Diagnoses Vaginal discharge N89.8 Abnormal uterine bleeding (AUB) N93.9 Vaginal odor N89.8 Pelvic pain R10.2
[2023-07-12 12:46] VITALS: BP 100/64; BMI 29.0
== END 2023-07-12 13:20 | disposition home or self-care (01) ==
PROVIDERS: PCP Nurse Practitioner Family; Visit Provider Advanced Practice Midwife
DX: N89.8 Other specified noninflammatory disorders of vagina (principal); N93.9 Abnormal uterine and vaginal bleeding, unspecified; R10.2 Pelvic and perineal pain
CPT/HCPCS: 99213

== ENCOUNTER 2023-07-12 13:19 | Outpatient (REF) | payer BC, SELFPAY ==
[2023-07-12 17:26] LABS: CT PCR NOT DETECTED (Not Detect.); NG PCR NOT DETECTED (Not Detect.)
[2023-07-13 11:15] LABS: BV Int Neg Control Negative (Negative); BV Int Pos Control Positive (Positive)
== END 2023-07-12 13:20 | disposition home or self-care (01) ==
LOC: HO.LNP 13:19
PROVIDERS: Visit Provider Advanced Practice Midwife
DX: N89.8 Other specified noninflammatory disorders of vagina (principal)
CPT/HCPCS: 0353U; 87480; 87510; 87660

== ENCOUNTER 2023-07-17 12:44 | Outpatient (REF) | payer BC, SELFPAY | END 2023-07-17 12:45 | disposition home or self-care (01) | LOC: HO.HMGCX 12:44 | PROVIDERS: PCP Nurse Practitioner Family; Visit Provider Advanced Practice Midwife | DX: N93.9 Abnormal uterine and vaginal bleeding, unspecified (principal) | CPT/HCPCS: 76830; 76856 ==

== ENCOUNTER 2023-08-14 09:13 | Outpatient (AMB) | payer BC, SELFPAY ==
--- NOTE | 2023-08-14 09:15 | MHC.OFFVIS ---
Intake Vital Signs 08/14/23 09:20 Height 5 ft 4 in Weight 169 lb BMI 29.0 BP 102/62 Intake Visit Reasons: US follow up Allergies Linalool Allergy (Unknown, Uncoded 08/14/23 09:24) Hives Is last menstrual period known: Yes Last menstrual period: 07/26/23 HPI HPI Comments History of Present Illness Details Angely is here today for a follow up ultrasound and menstrual cycle review. Cycles are 5-7d normally, last month lasted a little longer with brown spotting up to 8-9d. She is not having any left sided pain today. Reports that she has had pain at times, briefly on both sides. Using condoms. Not interested in control at this time. H/H-12.9, TSH- 1.26. PFSH Medical History Abnormal uterine bleeding (AUB) Surgical History History of delivery (10/04/19) Social History Housing: House Alcohol intake: current Patient Tobacco Use Status: Never used Tobacco e-Cigarette/Vaping Use: Never Used Second Hand Smoke Exposure: No service: No Current occupational status: employed and unemployed Cognitive needs: No Hearing needs: No Vision needs: No Female Reproductive History Menstrual Age of Menarche: 12 Date of last menstrual period: 07/26/23 Physical Exam Vital Signs: Last Vital Signs BP 102/62 08/14/23 09:20 BMI result Body Mass Index 29.0 Const General: cooperative, healthy appearing, comfortable and no acute distress Results Reviewed Results Reviewed: [facility] [place] Adult Primary [facility] [place] [address] Ultrasound Report Signed Patient: Marie Martin MR#: [id number] : 1990 Acct:[id number] Age/Sex: 33 / F ADM Date: 07/17/23 Loc: HO.HMGCX Attending Dr: Nicole Purdy CNM Ordering Physician: Nicole Purdy CNM Date of Service: 07/17/23 Procedure(s): US pelvic and transvaginal Accession Number(s): [id number] cc: Pelon Biggs [facility]-; Nicole Purdy CN~ EXAMINATION: US PELVIS CLINICAL INFORMATION: Abnormal uterine bleeding. No prior imaging. Last menstrual period 06/25/2023. COMPARISON: None available. TECHNIQUE: Ultrasound of the pelvis is performed using both transabdominal and transvaginal transducers along with Doppler. Transvaginal imaging is performed due to inadequate visualization transabdominally. FINDINGS: The uterus measures 8.0 x 4.5 x 5.4 cm and is heterogeneous. No discrete fibroids are identified. Endometrium is thick and echogenic with thickness of 1.0 cm. Nabothian cysts are present. Right ovary measures 2.8 x 1.7 x 1.8 cm, volume 4.64 mL Small amount of free fluid in the pelvis. Left ovary measures 2.7 x 2.1 x 2.9 cm, volume 8.6 mL. A 1.9 x 1.2 x 1.6 cm thick-walled complex left ovarian cyst is characteristic of a corpus luteum. There is no indication for follow up imaging per departmental criteria this time. US/US pelvic and transvaginal IMPRESSION: 1. No discrete fibroids. 2. Echogenic endometrium with thickness of 1.0 cm. Correlation with menstrual history and gynecologic consultation recommended to determine further management for this patient with history of abnormal uterine bleeding. Dictated By: Sayra Linares MD Assessment & Plan Assessment & Plan (1) Encounter to discuss test results: Code(s): Z71.2 - Person consulting for explanation of examination or test findings Plan: Discussed: US findings: corpus luteum cyst, benign not in pain, no follow up recommended. Normal lab work. She defers her pap until the annual next month. All of her questions and concerns were addressed to the best of my ability and shared decision making. She is agreeable to the plan of care. (2) Corpus luteum cyst: Code(s): N83.10 - Corpus luteum cyst of ovary, unspecified side Coding Level of Care Code Est Pt Level 3 (52789) Diagnoses Encounter to discuss test results Z71.2 Corpus luteum cyst N83.10
[2023-08-14 09:20] VITALS: BP 102/62; BMI 29.0
== END 2023-08-14 09:50 | disposition home or self-care (01) ==
LOC: HO.HWS 09:13
PROVIDERS: PCP Nurse Practitioner Family; Visit Provider Advanced Practice Midwife
DX: Z71.2 Person consulting for explanation of examination or test findings (principal); N83.10 Corpus luteum cyst of ovary, unspecified side
CPT/HCPCS: 99213

== ENCOUNTER → 2023-08-14 09:13 | Outpatient (BNVA) | payer BC, SELFPAY | PROVIDERS: PCP Nurse Practitioner Family; Visit Provider Advanced Practice Midwife ==

== ENCOUNTER 2023-10-02 14:17 | Outpatient (AMB) | payer BC, SELFPAY ==
--- NOTE | 2023-10-02 14:23 | MHC.OFFVIS ---
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 Doing well with no concerns. She tries to eat healthy and stays active with exercise. Regular monthly menses. Currently is sexually active. She denies vaginal itching and irritation. STI screening offered; she accepts. Denies family history of breast, ovarian or colon cancer. Last pap smear 07/2021, negative. [facility] Medical History Abnormal uterine bleeding (AUB) Surgical History History of delivery (10/04/19) Social History Housing: House Alcohol intake: current Patient Tobacco Use Status: Never used Tobacco e-Cigarette/Vaping Use: Never Used Second Hand Smoke Exposure: No service: No Current occupational status: employed and unemployed Cognitive needs: No Hearing needs: No Vision needs: No Female Reproductive History Menstrual Age of Menarche: 12 Duration of menses: 3-5 days Date of last menstrual period: 09/27/23 control method: condoms Total pregnancies: 1 Full term: 1 Number of Living Children: 1 Date of last pap smear: 07/28/21 (results on patient phone per last note) Review of Systems Const All systems reviewed & are unremarkable except as noted in HPI and below Reports as per HPI Eyes Reports no additional complaints ENT Reports no additional complaints Card Reports no additional complaints Resp Reports no additional complaints GI Reports as per HPI and Reports no additional complaints Reports as per HPI Musc Reports no additional complaints Skin/Breast Reports as per HPI Neuro Reports no additional complaints Psych Reports no additional complaints Endo Reports no additional complaints Temo/Lymph Reports no additional complaints Aller/Immun Reports no additional complaints Physical Exam Vital Signs: Last Vital Signs BP 104/64 10/02/23 14:25 BMI result Body Mass Index 28.7 Const General: cooperative, healthy appearing, no acute distress, well developed and alert Orientation/consciousness: patient oriented x3 HEENT Head: Yes normal to inspection Eyes General: appearance normal, both eyes and all related structures Neck Neck: Yes normal visual inspection Thyroid: Thyroid normal Chest Chest palpation & inspection: normal inspection of the chest and other (no puckering, dimpling, peau de orange, retraction, discharge, masses) Breast/axilla inspection: normal inspection of the breasts Breast/axilla palpation: normal palpation of the breasts Resp Effort & Inspection: normal respiratory effort GI Inspection: Yes normal to inspection Palpation (GI): Soft to palpation Rectal Exam - Female: deferred General: Yes bladder normal to palpation External Female Exam: normal external appearance and normal appearance of the urethra Speculum Exam - Vagina: normal appearance of the vagina, normal palpation and vaginal bleeding Speculum Exam - Cervix: normal appearance of the cervix and normal palpation Bimanual exam- vagina & uterus: normal bimanual exam, normal palpation, uterine size normal, bladder normal to palpation, normal palpation and non-tender Bimanual Exam- Adnexa, other: no masses OB/external & speculum: vaginal bleeding Skin General skin exam: no rashes or lesions noted Rashes: no rashes Neuro General: patient oriented x3 Cognition (Neuro): normal cognition Extrem General: Yes normal to inspection Psych Attitude: cooperative Thought process: Normal thought process present Assessment & Plan Assessment & Plan (1) Encounter for well woman exam with routine gynecological exam: Code(s): Z01.419 - Encounter for gynecological examination (general) (routine) without abnormal findings Plan Discussed: Current recommendations for pap smears per ASCCP guidelines. Breast awareness and periodic breast exams. Maintain a healthy lifestyle including a well balanced diet and routine exercise. Use condoms, follow-up for BC consult if desires to use another method. All of her questions and concerns were addressed to the best of my ability. RTO in one year for annual panel cutter examination. This note is constructed using voice recognition software. While every effort has been made to ensure accuracy, supervisor inspection errors may have been included. Coding Level of Care Code Est Pt Prev Care 18-39y(55966) Diagnoses Encounter for well woman exam with routine gynecological exam Z01.419
[2023-10-02 14:25] VITALS: BP 104/64; BMI 28.7
== END 2023-10-02 15:01 | disposition home or self-care (01) ==
PROVIDERS: Visit Provider Advanced Practice Midwife
DX: Z01.419 Encounter for gynecological examination (general) (routine) without abnormal findings (principal)
CPT/HCPCS: 99395

== ENCOUNTER → 2023-10-02 14:17 | Outpatient (BNVA) | payer BC, SELFPAY | PROVIDERS: Visit Provider Advanced Practice Midwife ==

== ENCOUNTER 2023-11-08 13:34 | Outpatient (REF) | payer BC, SELFPAY | END 2023-11-08 13:35 | disposition home or self-care (01) | LOC: HO.SH 13:34 | PROVIDERS: Visit Provider Nurse Practitioner Family | DX: Z01.118 Encounter for examination of ears and hearing with other abnormal findings (principal); H93.13 Tinnitus, bilateral | CPT/HCPCS: 92552; 92556; 92567 ==

== ENCOUNTER 2023-12-13 09:23 | Outpatient (AMB) | payer BC, SELFPAY ==
--- NOTE | 2023-12-13 09:27 | A.OFFPC_ITS ---
Vital Signs 12/13/23 09:28 Height 5 ft 4 in Weight 171 lb BMI 29.3 BP 118/86 Blood Pressure Location Lt brachial Position Sitting Pulse 87 Pulse Source Pulse Oximeter Pulse Oximetry (%) 99 Oxygen Delivery Method Room Air Intake Visit Reasons: 6 month fu Intake Note: Pt is here to follow up for her heart Palpitations Allergies Linalool Allergy (Unknown, Uncoded 12/13/23 09:32) Hives Medication List - Last Reconciled 12/13/23 by ILIANA Serna ascorbate calcium (vitamin C) 500 mg PO DAILY betamethasone dipropionate 0.05% 1 appl topical DAILY PRN buspirone 5 mg PO BEDTIME 30 days cholecalciferol (vitamin D3) 50 mcg PO DAILY Tobacco use date assessed: 12/13/23 Dental Screening Dental Screen Date: 12/13/23 Did you have a dental visit in the last 12 months?: Yes Did you have a dental problem in the last 6 months where you did not have access to dental care?: No Was dental information given to patient?: Patient has dentist HPI 6 month fu HPI Details Pt c/o episodes of tachycardia. She reports that this can occur when sitting still or standing, but mostly occur at night when lying down. She denies any flushing. I do question an anxiety component, though will order labs including tryptase to rule out any mass cell activation syndrome. Will assess labs further. Will also check structure of heart with echo. Will send buspirone 5mg to be taken at night. Denies current chest pain, shortness of breath, and dizziness. [facility] Medical History Abnormal uterine bleeding (AUB) Surgical History History of delivery (10/04/19) Social History Housing: House Alcohol intake: current Patient Tobacco Use Status: Never used Tobacco e-Cigarette/Vaping Use: Never Used Second Hand Smoke Exposure: No service: No Current occupational status: employed and unemployed Cognitive needs: No Hearing needs: No Vision needs: No Female Reproductive History Menstrual Age of Menarche: 12 Questionnaire PHQ-9 Over the last 2 weeks, how often have you been bothered by any of the following problems? 1. Little interest or pleasure in doing things: not at all 2. Feeling down, depressed, or hopeless: several days 3. Trouble falling or staying asleep, or sleeping too much: several days 4. Feeling tired or having little energy: several days 5. Poor appetite or overeating: not at all 6. Feeling bad about yourself - or that you are a failure or have let yourself or your family down: not at all 7. Trouble concentrating on things, such as reading the newspaper or watching television: not at all 8. Moving or speaking so slowly that other people could have noticed. Or the opposite - being so fidgety or restless that you have been moving around a lot more than usual: not at all 9. Thoughts that you would be better off or of hurting yourself in some way: not at all Total score: 3 Source: Developed by Drs. Miguel Rosas, Daniela Sanches, Esdras Singh and colleagues, with an educational luis manuel from [email or web address]. Thrive Questionnaire Date Thrive assessed: 05/18/22 I am a: Patient What is your living situation today?: I have a steady place to live Within the past 12 months, did the food you bought not last and you didn't have the money to get more?: Never true Within the past 12 months, did you worry whether your food would run out before you got money to buy more?: Never true Do you have trouble paying for medicines?: No Do you have trouble getting transportation to medical appointments?: No Do you have trouble paying your heating and electricity bill?: No Do you have trouble taking care of your child, family member or friend?: No Do you have trouble with day-to-day activities such as bathing, preparing meals, shopping, managing finances, etc.?: No Are you currently unemployed and looking for a job?: No Are you interested in more education?: No THRIVE Score: 0 AUDIT C Alcohol Use Questionnaire (AUDIT-C) 1. How often do you have a drink containing alcohol?: 2-3 times a week 2. How many drinks containing alcohol do you have on a typical day when you are drinking?: 1 or 2 3. How often do you have six or more drinks on one occasion?: Less than monthly Total Score: 4 GEOVANI-7 AMB Questionnaire GEOVANI-7 Date GEOVANI - 7 assessed: 12/13/23 Feeling nervous, anxious, or on edge: 1 = Several days Not being able to stop or control worryin = Several days Worrying too much about different things: 1 = Several days Trouble relaxin = Not at all Being so restless that it is hard to sit still: 0 = Not at all Becoming easily annoyed or irritable: 1 = Several days Feeling afraid as if something awful might happen: 0 = Not at all Total GEOVANI-7 score (0-4 normal; 5-9 mild; 10-14 moderate; 15-21 severe): 4 Source: Developed by Drs. Miguel Rosas, Daniela Sanches, Esdras Singh and colleagues, with an educational luis manuel from [email or web address]. Review of Systems Const Reports as per HPI Physical exam (Primary Care) Vital Signs: Last Vital Signs Pulse 87 12/13/23 09:28 BP 118/86 12/13/23 09:28 Pulse Ox 99 12/13/23 09:28 Oxygen Delivery Method Room Air 12/13/23 09:28 BMI result Body Mass Index 29.3 Tobacco/Smoking Status: Tobacco use Status Tobacco use date assessed 12/13/23 12/13/23 09:37 Patient Tobacco Use Status Never used Tobacco 12/13/23 09:28 e-Cigarette/Vaping Use Never Used 12/13/23 09:28 PHQ-9: PHQ-9 Score PHQ-9: Total score 3 12/13/23 09:45 Thrive Assessment: Date of Thrive Assessment Date Thrive assessed 05/18/22 12/13/23 09:28 Const General: cooperative Orientation/consciousness: patient oriented x3 Resp Effort & Inspection: normal respiratory effort Auscultation: clear to auscultation bilaterally Cardio Rate: regular rate Rhythm: regular rhythm Heart sounds: S1 normal heart sound present and S2 normal heart sound present Neuro General: patient oriented x3 Psych Appearance: grossly normal Mental Status: mental status grossly normal Speech and movement: Normal speech and movement present Affect: normal affect Attitude: cooperative Thought process: Normal thought process present Thought content: Normal thought content present Insight: Good insight present (Psych) Judgement: Good judgement present (Psych) Assessment and Plan Assessment & Plan (1) Tachycardia: Code(s): R00.0 - Tachycardia, unspecified Plan: Echo and labs ordered, starting buspirone at night, pt will contact me via portal in 3 weeks with how she is doing Plan The patient agreed to the use of a medical certification specialist for this encounter. Scribed for [employer]- by Stormy Tiwari medical certification specialist, on 12/13/2023 at 09:40 EST. Orders: Orders Complete Blood Count Auto Diff Today R00.0 - Tachycardia, unspecified CA echo transthoracic complete Today Tryptase Today R00.0 - Tachycardia, unspecified Comprehensive Met. Panel Today R00.0 - Tachycardia, unspecified TSH reflex Free T4 Today R00.0 - Tachycardia, unspecified Medications: New buspirone 5 mg PO BEDTIME 30 days 30 tabs 2RF Coding Level of Care Code Est Pt Level 3 (87431) Diagnoses Tachycardia R00.0
[2023-12-13 09:28] VITALS: BP 118/86; PULSE 87; O2SAT 99; BMI 29.3
== END 2023-12-13 10:10 | disposition home or self-care (01) ==
PROVIDERS: PCP Nurse Practitioner Family; Visit Provider Nurse Practitioner Family
DX: R00.0 Tachycardia, unspecified (principal)
CPT/HCPCS: 99213

== ENCOUNTER 2023-12-13 10:07 | Outpatient (REF) | payer BC, SELFPAY ==
[2023-12-13 13:03] LABS: MANUAL DIFF FLAG NO
[2023-12-13 13:24] LABS: Basophils Percent Auto 0.4 % (0-2); Eosinophils Absolute Auto 0.1 X10*3/uL (0.0-0.4); Hematocrit 40.6 % (37.0-47.0); Hemoglobin 13.9 g/dl (12.0-16.0); Imm Gran Abs Auto 0.03 X10*3/uL (0.00-0.03); Imm Gran Pct Auto 0.3 % (0.0-0.4); Lymphocytes Absolute Auto 2.5 X10*3/uL (1.2-4.9); Lymphocytes Percent Auto 27.2 % (20-40); Mean Corpuscular HGB Conc 34.2 g/dl (31.0-35.0); Mean Corpuscular Hemoglobin 29.9 pg (27.0-33.0); Mean Corpuscular Volume 87.3 fL (80.0-98.0); Mean Platelet Volume 9.6 fL (9.4-12.3); Monocytes Absolute Auto 0.6 X10*3/uL (0.1-1.2); Monocytes Percent Auto 6.8 % (2-11); Neutrophils Absolute Auto 5.9 x10*3/uL (2.0-8.3); Neutrophils Percent Auto 64.3 % (45-73); Platelet Count 390 X10*3/uL (160-400); Red Blood Count 4.65 X10*6/uL (4.20-5.50); Red Cell Distribution Width 12.6 % (11.0-16.0); White Blood Count 9.1 X10*3/uL (4.8-10.8)
[2023-12-13 13:49] LABS: Alanine Aminotransferase 13 U/L (0-31); Albumin Level 4.5 g/dL (3.5-5.0); Alkaline Phosphatase 65 U/L (39-117); Anion Gap 13 (12-20); Aspartate Amino Transferase 16 U/L (5-31); Bilirubin Total 0.6 mg/dL (0.0-1.0); Blood Urea Nitrogen 13 mg/dL (9-16); Calcium 9.8 mg/dL (8.4-10.2); Carbon Dioxide 26 mmol/L (22-29); Chloride 104 mmol/L (96-108); Estimated Glomerular Filt Rate > 60; Glucose Random 96 mg/dL (60-115); Potassium 3.7 mmol/L (3.3-5.1); Sodium 139 mmol/L (135-145); Total Protein 8.2 g/dL (6.5-8.0)
[2023-12-13 13:54] LABS: TSH reflex Free T4 1.04 uIU/mL (0.32-4.0)
== END 2023-12-13 10:08 | disposition home or self-care (01) ==
LOC: HO.HMGCLDS 10:07
PROVIDERS: PCP Nurse Practitioner Family; Visit Provider Nurse Practitioner Family
DX: R00.0 Tachycardia, unspecified (principal)
CPT/HCPCS: 36415; 80053; 83520; 84443; 85025

== ENCOUNTER → 2024-01-04 13:53 | Outpatient (REF) | payer BC, SELFPAY ==
--- NOTE | 2024-01-04 14:14 | CA_ITS ---
Transthoracic Echocardiogram Patient (Last, First, Middle): Marie Martin, Gender: Female Date of : 1990 Age: 33 Procedure Date: 01/04/2024 Procedure Type: Transthoracic Echocardiogram Location: OP Height: 162. cm Weight: 76.66 kg BSA: 1.82 m2 Heart Rate: 98 bpm BP: 110 / 70 mmHg Thread Weaver: NAI Alva MD: Pelon Biggs [facility] Symptoms: R00.0 - Tachycardia, unspecified Study Quality: Fair ECG Rhythm: Sinus Conclusions: - The left ventricular systolic function is normal. The calculated ejection fraction is 58% by biplane method. - No obvious valvular pathology seen on this study. Findings Left Ventricle Normal left ventricular cavity size. There is normal left ventricular wall thickness. The left ventricular systolic function is normal. The calculated ejection fraction is 58% by biplane method. There is no evidence of regional wall motion abnormalities. Diastolic function is normal for age. Right Ventricle Normal right ventricular cavity size and systolic function. Atria Both atria are normal in size. Aortic Valve There is a normal trileaflet aortic valve. There is no aortic valve stenosis. There is no aortic valve regurgitation. Mitral Valve There is mild anterior mitral leaflet thickening. There is no mitral valve regurgitation. There is no mitral valve stenosis. Pulmonic Valve The pulmonic valve is likely normal. Tricuspid Valve Normal tricuspid valve structure. There is no tricuspid valve regurgitation. Tricuspid regurgitation envelope is inadequate for calculation of right ventricular systolic pressure. Great Vessels The asc aorta is normal in size. Venous The inferior vena cava is normal in size and collapses greater than 50% with inspiration. Pericardium/Pleural There is no evidence of pericardial effusion. Prior Study Comparison No prior study available for comparison. Recommendations, Care & Conclusions No obvious valvular pathology seen on this study. Measurements 2D Linear Measurements IVSd: 0.66 0.6-0.9/0.6-1.0 cm LVIDd: 4.29 3.9-5.3/4.2-5.9 cm LVIDd Index: 2.36 2.4-3.2/2.2-3.1 cm/m2 LVIDs: 3.18 2.0-3.6 cm LVPWd: 0.70 0.7-1.1 cm LA Diam: 2.70 2.7-3.8/3.0-4.0 cm LAIDs Index: 1.48 1.5-2.3 cm/m2 LV Mass: 105.17 67-162/88-224 g LV Mass Index: 57.78 43-95/49-115 g/m2 LVOT Diam: 1.80 3.0+(-)1.3 cm 2D Systolic Function EF 4C: 60.30 >55% EF 2C: 55.60 >55% EF BiP: 58.30 >55% Mitral Valve MV Pk E: 0.71 MV PK A: 0.72 MV Decel Time: 299.00 E/A: 1.00 E'Lateral: 12.30 E'Medial: 10.20 E/E' Med: 7.00 E/E' Lat: 5.80 PHT: 88.00 MVA PHT: 2.50 Decel [place]: 2.38 Aortic Valve AoV Pk Hari: 1.49 AoV Mn Hari: 1.01 AoV VTI: 0.26 AoV Pk Grad: 9.00 Aov Mn Grad: 5.00 ELLI Cont.VTI: 1.95 LVOT LVOT Pk Hari: 1.08 LVOT Mn Hari: 0.77 LVOT VTI: 0.20 LVOT Pk Grad: 5.00 LVOT Mn Grad: 3.00 LVOT Diam: 1.80 LVOT Area: 2.54 Diastolic Function MV Pk E: 0.71 MV Pk A: 0.72 E/A: 1.00 E'Medial: 10.20 E/E' Med: 7.00 E' Laterial: 12.30 E/E' Lat: 5.80 Right Ventricle TAPSE (mm): 19.90 TVS' Hari: 11.70 Tricuspid Valve RA Press: 3.00 Great Vessels Aorta Sinus of Valsalva: 3.00 2.0-3.5 cm Ao Asc: 2.60 2.1-3.4 cm Pulmonary Valve PV Pk Hari: 0.83 Peak PV Grad: 3.00 Updated in Other Vendor System with Status of Final Arnav Jasso MD electronically signed on 01/05/2024 1:45:48 PM with status of Final
== END ==
LOC: HO.CARD 13:53
PROVIDERS: PCP Nurse Practitioner Family; Visit Provider Nurse Practitioner Family
DX: R00.0 Tachycardia, unspecified (principal); R00.2 Palpitations
CPT/HCPCS: 93306

== ENCOUNTER → 2024-01-04 14:14 | Outpatient (BNV) | payer BC, SELFPAY | PROVIDERS: PCP Nurse Practitioner Family; Visit Provider Internal Medicine | DX: I36.1 Nonrheumatic tricuspid (valve) insufficiency (principal) | CPT/HCPCS: 93306 ==

== ENCOUNTER 2024-01-10 09:49 | Outpatient (AMB) | payer BC, SELFPAY ==
--- NOTE | 2024-01-10 10:29 | A.OFFVIS_ITS ---
Intake Visit Reasons: 1y/urine check Intake Note: patient presents to for a 1 yr followu-up: medications: none Blood thinners: none ABX allergies: none Offset Second Press Operator Required: No Accompanied by: Self / Same As Patient Allergies Linalool Allergy (Unknown, Uncoded 01/10/24 10:30) Tyler RINCON Comments Details: 01/10/2024--Angely is a 33-year-old female here for 1 year follow-up due to persistence microscopic hematuria. She is on medication for blood pressure. She denies gross hematuria. She has had previous workup including office cystoscopy performed last year 01/11/2023. Discussed follow-up p.r.n. versus follow-up in 1 year to check urine. The patient wants to continue follow-up with Urology. I will send urine for cytology. Discussed plan to re-evaluate upper tracts with renal ultrasound. 01/11/2023--Marie Au is a 32-year-old female who presents to the clinic for cystoscopy procedure. The patient was provided naproxen 500 mg and ciprofloxacin 500 mg x 1 dose pre-procedure today. Denies experiencing pain while having full bladder. Denies having gross hematuria. Evaluation today: Blood:?25 Demetrio/uL, Leukocytes: negative. Bladder s can PVR: 0 mL. Consent was obtained to perform cystoscopy procedure. Cystoscopy: no suspicious bladder lesion found. Plan--Monitor, will check urinalysis and evaluate LUTS. Follow-up after one year and repeat urine cytology. 12/14/2022-- with LOUISE Chirinos--Marie Au is a pleasant 32-year-old female patient of Dr. Biggs. Patient presents to the office today as a new patient for microscopic hematuria. Patient states that weight last year in September she seeked emergency medicine care for urinary frequency and flank pain she had been experiencing. It appears an abdominal ultrasound was performed and these results were reviewed with the patient today. Bilateral kidneys with no hydronephrosis, lesions, or abnormalities noted. Normal renal ultrasound. No urinary tract calculi or evidence for pyelonephritis. In discussion with the patient today she reports a previous history of pyelonephritis at the age of approximately 17 years old when she was living in [place]. Currently patient denies any urological issues or complaints. However, she states she notices herself to have right upper quadrant abdominal pain as well as lower abdominal pressure when she does not drink adequate amount of fluid daily. She reports that when she stays well hydrated her symptoms seem to subside. In office urinalysis today continues with microscopic hematuria. Patient denies smoking history as well as workplace chemical exposures. She does have a history of a with her 3-year-old son. Currently she denies urinary urgency, urinary frequency, dysuria, foul-smelling urine, hematuria, changes in urinary stream, flank pain, fever, and or chills. When asked she does report to getting up approximately 1 time a night to void. Discussed cytology from 07/06 negative and patient with renal and abdominal imaging from July and September of last year with no noted abnormalities. Discussed further microscopic hematuria workup with in office cystoscopy. Discussed risks and benefits. At this time patient is agreeable and wishes to have cystoscopy for further assessment and evaluation. Renal US results ?10/03/2022-- Kidneys: WNL, No renal calculi found. Urine cytology results --12/14/2022-- Negative for malignancy. 01/10/24--Plan--urine for cytology. Follow-up in 1 year, renal ultrasound prior. COUNT INCLUDES [facility] Medical History Abnormal uterine bleeding (AUB) Surgical History History of delivery (10/04/19) Social History Housing: House Alcohol intake: current Patient Tobacco Use Status: Never used Tobacco e-Cigarette/Vaping Use: Never Used Second Hand Smoke Exposure: No service: No Current occupational status: employed and unemployed Cognitive needs: No Hearing needs: No Vision needs: No Female Reproductive History Menstrual Age of Menarche: 12 Review of Systems Const All systems reviewed & are unremarkable except as noted in HPI and below Reports no additional complaints Eyes Reports no additional complaints ENT Reports no additional complaints Card Reports no additional complaints Resp Reports no additional complaints GI Reports no additional complaints Reports as per HPI Musc Reports no additional complaints Skin/Breast Reports system reviewed and no additional complaints, except as documented Neuro Reports no additional complaints Psych Reports no additional complaints Endo Reports no additional complaints Temo/Lymph Reports no additional complaints Aller/Immun Reports no additional complaints Results AMB Urinalysis, Automated UA Leukoctes 0 Carine/uL Last Edit by REENA Guzman on 01/10/24 10:34 UA Nitrite Negative Last Edit by REENA Guzman on 01/10/24 10:34 UA Urobilinogen 0.2 mg/dL Last Edit by REENA Guzman on 01/10/24 10:3 4 UA Protein 0 mg/dL Last Edit by REENA Guzman on 01/10/24 10:34 UA pH 6.5 Last Edit by REENA Guzman on 01/10/24 10:34 UA Blood 10 Demetrio/uL Last Edit by REENA Guzman on 01/10/24 10:34 UA Specific [place] 1.005 Last Edit by REENA Guzman on 01/10/24 10: 34 UA Ketone Negative Last Edit by REENA Guzman on 01/10/24 10:34 UA Bilirubin 0 mg/dL Last Edit by REENA Guzman on 01/10/24 10:34 UA Glucose 0 mg/dL Last Edit by Nayan Sims Tulio on 01/10/24 10:34 Results Reviewed Results Reviewed: Laboratory Last Values Urine pH (Auto) 6.5 01/10/24 10:31 Specific [place] (Auto) 1.005 01/10/24 10:31 Urine Protein (Auto) 0 mg/dL 01/10/24 10:31 Glucose (UA)(Auto) 0 mg/dL 01/10/24 10:31 Urine Ketones (Auto) Negative 01/10/24 10:31 Urine Blood (Auto) 10 Demetrio/uL 01/10/24 10:31 Urine Nitrite (Auto) Negative 01/10/24 10:31 Urine Bilirubin (Auto) 0 mg/dL 01/10/24 10:31 Urine Urobilinogen (Auto) 0.2 mg/dL 01/10/24 10:31 Leukocyte Esterase (Auto) 0 Carine/uL 01/10/24 10:31 Assessment & Plan Assessment & Plan (1) Microscopic hematuria: Code(s): R31.29 - Other microscopic hematuria Category: Medical (2) Sensation of pressure in bladder area: Code(s): R39.89 - Other symptoms and signs involving the genitourinary system Category: Medical Plan Plan--urine for cytology. Follow-up in 1 year, renal ultrasound prior. Orders: Orders AMB Urinalysis Automated 01/10/24 Z13.9 - Encounter for screening, unspecified US renal BI 01/10/24 R31.29 - Other microscopic hematuria Urine Cytology 01/10/24 R31.9 - Hematuria, unspecified, R31.29 - Other microscopic hematuria Patient Instructions: The patient had an opportunity to ask questions regarding treatment plan. All questions were answered. Imaging, Laboratory studies and physical exam results were discussed and reviewed in detail. No major barriers to understanding were identified. The patient expressed understanding and agreement with the above treatment plan. The patient is aware they should contact our office by phone for worsening of their current condition or the appearance of new symptoms. Compliance is encouraged with any medications and followup testing that is ordered. It is a privilege to be allowed the opportunity to participate in the urologic care of your patient. If you have any questions or concerns regarding treatment for the above conditions please do not hesitate to contact me. The office telephone contact is [phone]. This note is constructed in part using voice recognition software. While every effort has been made to ensure accuracy tool maintenance worker errors may have been included. Yours sincerely, Kendall Fernandez MD Coding Level of Care Code Est Pt Level 3 (71596) Diagnoses Microscopic hematuria R31.29 Sensation of pressure in bladder area R39.89
== END 2024-01-10 10:53 | disposition home or self-care (01) ==
PROVIDERS: Visit Provider Urology
DX: R31.29 Other microscopic hematuria (principal); R39.89 Other symptoms and signs involving the genitourinary system
CPT/HCPCS: 99213

== ENCOUNTER 2024-01-10 09:49 | Outpatient (REF) | payer BC, SELFPAY ==
[2024-01-10 19:19] LABS: Urine Cytology See Pathology rpt
== END 2024-01-10 09:50 | disposition home or self-care (01) ==
LOC: HO.LAB 09:49
PROVIDERS: Visit Provider Urology
DX: R31.29 Other microscopic hematuria (principal)
CPT/HCPCS: 81003; 88112

== ENCOUNTER 2024-02-08 12:53 | Outpatient (REF) | payer BC, SELFPAY ==
[2024-02-08 17:33] LABS: CT PCR NOT DETECTED (Not Detect.); NG PCR NOT DETECTED (Not Detect.)
[2024-02-10 11:42] LABS: BV Int Neg Control Negative (Negative); BV Int Pos Control Positive (Positive)
[2024-02-13 23:18] LABS: HPV mRNA E6/E7 rflx Not Detected (Not Detected)
== END 2024-02-08 12:54 | disposition home or self-care (01) ==
LOC: HO.LNP 12:53
PROVIDERS: PCP Nurse Practitioner Family; Visit Provider Advanced Practice Midwife
DX: Z12.4 Encounter for screening for malignant neoplasm of cervix (principal); Z11.51 Encounter for screening for human papillomavirus (HPV); Z20.2 Contact with and (suspected) exposure to infections with a predominantly sexual mode of transmission; N93.9 Abnormal uterine and vaginal bleeding, unspecified
CPT/HCPCS: 0353U; 87480; 87510; 87624; 87660; 88142

== ENCOUNTER 2024-02-08 12:53 | Outpatient (AMB) | payer BC, SELFPAY ==
[2024-02-08 12:54] VITALS: BP 110/74; BMI 29.1
--- NOTE | 2024-02-08 12:54 | MHC.OFFVIS ---
Vital Signs 02/08/24 12:54 Height 5 ft 4 in Weight 169 lb 12.095 oz BMI 29.1 BP 110/74 Intake Visit Reasons: AUB Shelter Advocate Required: No Information Interpreted: non-clinical & clinical Polishing Wheel Repairer: Polishing Wheel Repairer Present (Akilah VALLES) Accompanied by: Self / Same As Patient Allergies Linalool Allergy (Unknown, Uncoded 02/08/24 13:05) Hives Is last menstrual period known: Yes Last menstrual period: 01/24/24 HPI Comments Details: Patient is here today with concerns of irregular bleeding she reports she had spotting about 6 days before her regular menses this month and reports her periods are heavy 2-3 days at a 5-7 in general. She reports pelvic pressure and slight odor she has not had intimacy with her in over 8 weeks. Last year she had an episode of similar bleeding with the workup an ultrasound in July 2023 was normal as well as her CBC and TSH. Today she reports midcycle pink discharge. [facility] Medical History Abnormal uterine bleeding (AUB) Surgical History History of delivery (10/04/19) Social History Housing: House Alcohol intake: current Patient Tobacco Use Status: Never used Tobacco e-Cigarette/Vaping Use: Never Used Second Hand Smoke Exposure: No service: No Current occupational status: employed and unemployed Cognitive needs: No Hearing needs: No Vision needs: No Female Reproductive History Menstrual Age of Menarche: 12 Date of last menstrual period: 01/24/24 Review of Systems Const All systems reviewed & are unremarkable except as noted in HPI and below Physical Exam Vital Signs: Last Vital Signs BP 110/74 02/08/24 12:54 BMI result Body Mass Index 29.1 Const General: cooperative, healthy appearing and no acute distress Orientation/consciousness: patient oriented x3 GI Inspection: Yes normal to inspection Palpation (GI): Soft to palpation and Other GI palpation findings present (Nontender) Rectal Exam - Female: visual inspection normal General: Yes bladder normal to palpation External Female Exam: normal appearance of the urethra Speculum Exam - Vagina: normal appearance of the vagina, normal palpation and normal vaginal discharge Speculum Exam - Cervix: normal appearance of the cervix, normal palpation and Other cervical findings present (Bled slightly with Pap) Bimanual exam- vagina & uterus: normal bimanual exam, normal palpation, uterine size normal, bladder normal to palpation, normal palpation, uterine shape normal and non-tender Bimanual Exam- Adnexa, other: normal adnexae Neuro General: patient oriented x3 Assessment & Plan Assessment & Plan (1) Abnormal uterine bleeding (AUB): Code(s): N93.9 - Abnormal uterine and vaginal bleeding, unspecified Category: Medical Plan: Discussed workup for AUB to include an endometrial biopsy. Discuss the procedure. Advised preprocedure [id number] ibuprofen 600 mg with food 1 hour before the procedure. Await BV results. Pap obtained today. All of her questions and concerns were addressed to the best of my ability and shared decision making. She is agreeable to the plan of care and plans to schedule her endometrial biopsy appointment. This note is constructed using voice recognition software. While every effort has been made to ensure accuracy, rn urgent care errors may have been included. Orders: Orders Pap Smear Today N93.9 - Abnormal uterine and vaginal bleeding, unspecified Bacterial Vaginosis Panel Today N93.9 - Abnormal uterine and vaginal bleeding, unspecified Human Papillomavirus Immunization Today Z23 - Encounter for immunization CT NG by PCR Today N93.9 - Abnormal uterine and vaginal bleeding, unspecified Medications: New Gardasil 9 (PF) (human papillomav vac,9-hal(PF)) 0.5 mL IM ONCE 0.5 mL 0RF NS Z23 - Encounter for immunization Coding Level of Care Code Est Pt Level 3 (96860) Diagnoses Abnormal uterine bleeding (AUB) N93.9
== END 2024-02-08 13:59 | disposition home or self-care (01) ==
PROVIDERS: PCP Nurse Practitioner Family; Visit Provider Advanced Practice Midwife
DX: N93.9 Abnormal uterine and vaginal bleeding, unspecified (principal)
CPT/HCPCS: 99213

== ENCOUNTER 2024-03-13 08:14 | Outpatient (AMB) | payer BC, SELFPAY ==
[2024-03-13 08:33] VITALS: BP 108/60; BMI 29.3
--- NOTE | 2024-03-13 08:33 | A.OFFVIS_ITS ---
Vital Signs 03/13/24 08:33 Height 5 ft 4 in Weight 171 lb BMI 29.3 BP 108/60 Intake Visit Reasons: Emb/Gardisil injection Hospice Case Manager Required: No Information Interpreted: non-clinical & clinical Family Medicine Resident: Family Medicine Resident Present (Maria Eyn) Allergies Linalool Allergy (Unknown, Uncoded 03/13/24 08:33) Hives Post menopausal: No Patient : No HPI Comments Details: Patient is here today for a a EMB procedure due to AUB. She reports her last cycle was x5 days and normal volume. She will also be receiving her 2nd Gardasil vaccination today after her visit. She denies any risk to . Urine test was negative. [facility] Medical History Abnormal uterine bleeding (AUB) Surgical History History of delivery (10/04/19) Social History Housing: House Alcohol intake: current Patient Tobacco Use Status: Never used Tobacco e-Cigarette/Vaping Use: Never Used Second Hand Smoke Exposure: No service: No Current occupational status: employed and unemployed Cognitive needs: No Hearing needs: No Vision needs: No Female Reproductive History Menstrual Age of Menarche: 12 control method: none Total pregnancies: 1 Full term: 1 Number of Living Children: 1 Review of Systems Const All systems reviewed & are unremarkable except as noted in HPI and below Physical Exam Vital Signs: Last Vital Signs BP 108/60 03/13/24 08:33 BMI result Body Mass Index 29.3 Const General: cooperative, healthy appearing and no acute distress Orientation/consciousness: patient oriented x3 GI Inspection: Yes normal to inspection Palpation (GI): Soft to palpation and Other GI palpation findings present (Nontender) Rectal Exam - Female: visual inspection normal General: Yes bladder normal to palpation External Female Exam: normal appearance of the urethra Speculum Exam - Vagina: normal appearance of the vagina, normal palpation and normal vaginal discharge Speculum Exam - Cervix: normal appearance of the cervix and normal palpation Bimanual exam- vagina & uterus: normal bimanual exam, normal palpation, uterine size normal, bladder normal to palpation, normal palpation, uterine shape normal and non-tender Bimanual Exam- Adnexa, other: normal adnexae Neuro General: patient oriented x3 Office Procedures Endometrial Biopsy Details: The patient is here today for an endometrial biopsy due to AUB to rule out any pathology including atypical, hyperplasia or cancer cells of the uterus. She was counseled regarding anticipatory guidance for the procedure including the risks for pain, infection, bleeding, perforation, potential injury to the tissues may include the cervix, uterus, tubes, bladder and bowels. These injuries may include further treatment and evaluation including surgery, blood transfusions, antibiotics, hospitalizations and anesthesia. Permanent injury and scarring can occur. She was consented for the procedure, and the consent forms were signed. She is agreeable to have the procedure today. All questions were answered. Endometrial Biopsy Procedure: The patient was placed in the dorsal lithotomy position and a sterile speculum inserted. Using aseptic technique for the procedure. The cervix was cleansed with Betadine x 3 swabs. A single toothed tenaculum was placed on the cervix for stabilization and the uterus was sounded to 5 cm with a 4mm pipelle for 3 passes. Minimal bleeding was observed. The tissue sample was placed in formalin in a patient labeled container by staff assisting and sent to the pathology department for processing and interpretati on. The patient tolerate the procedure well and was in good condition when leaving the department. Endometrial Biopsy Post Procedure Care: Nothing in the vagina including: tampons, douching or intimacy until all the bleeding has subsided. There may be some post procedure bleeding for several days, this bleeding is usually light and may turn to a light brown or pink color. Mild cramps may occurs. Nothing in the vaginal including: tampons, douching, or intimacy until all the bleeding has subsided. You may take an over the counter mild analgesic such as Tylenol or Advil (if no allergies) per the manufactures recommendation on dosing, frequency, and follow the directions completely. Call the office if any: fever (over 100.4), flu like symptoms, abdominal pain (worse than cramping), foul smelling, infected appearing vaginal discharge, or heavy bleeding. If indicated: Use condoms to prevent and STI's, and only after the bleeding has stopped completely. Return to the office in 2 weeks for results and plan of care. This note is constructed using voice recognition software. While every effort has been made to ensure accuracy, acetone button paster errors may have been included. [id number] Biopsy Results AMB Test Urine AMB Test Urine Negative Last Edit by REENA Cr on 03/13/24 08:58 Results Reviewed Results Reviewed: Laboratory Last Values [facility]st Clinic Negative 03/13/24 08:57 Assessment & Plan Assessment & Plan (1) Abnormal uterine bleeding (AUB): Code(s): N93.9 - Abnormal uterine and vaginal bleeding, unspecified Category: Medical Plan Return to the office in 2 weeks for endometrial biopsy results. See procedure notes for details. She is unsure if she wants to do any hormones for cycle control verses observing pattern of bleeding, plan further discussion at her follow up visit. Avoid for 3 months after Gardasil vaccination. All of her questions and concerns were addressed to the best of my ability and shared decision making. She is agreeable to the plan of care. This note is constructed using voice recognition software. While every effort has been made to ensure accuracy, acetone button paster errors may have been included. Orders: Orders AMB HCG Urine Test Today Z32.02 - Encounter for test, result negative Surgical Today N93.9 - Abnormal uterine and vaginal bleeding, unspecified Human Papillomavirus Immunization Today Z23 - Encounter for immunization Coding Level of Care Code Procedure Only Diagnoses Abnormal uterine bleeding (AUB) N93.9 CPT Codes Endometrial Biopsy - CPT: 30449-Ijzevddulig Biopsy ([id number])
== END 2024-03-13 09:16 | disposition home or self-care (01) ==
PROVIDERS: PCP Nurse Practitioner Family; Visit Provider Advanced Practice Midwife
DX: N93.9 Abnormal uterine and vaginal bleeding, unspecified (principal); Z23 Encounter for immunization; Z32.02 Encounter for pregnancy test, result negative
CPT/HCPCS: 58100

== ENCOUNTER 2024-03-13 08:14 | Outpatient (REF) | payer BC, SELFPAY | END 2024-03-13 08:15 | disposition home or self-care (01) | LOC: HO.LNP 08:14 | PROVIDERS: PCP Nurse Practitioner Family; Visit Provider Advanced Practice Midwife | DX: N93.9 Abnormal uterine and vaginal bleeding, unspecified (principal) | CPT/HCPCS: 58100; 81025; 88305; 90651; 96360 ==

== ENCOUNTER 2024-03-25 10:20 | Outpatient (AMB) | payer BC, SELFPAY ==
--- NOTE | 2024-03-25 10:36 | MHC.PC.OV ---
Vital Signs 03/25/24 10:37 Height 5 ft 4 in Weight 171 lb BMI 29.3 BP 118/82 Blood Pressure Location Lt brachial Position Sitting Pulse 82 Pulse Source Pulse Oximeter Pulse Oximetry (%) 99 Oxygen Delivery Method Room Air Intake Visit Reasons: 3 month follow up Intake Note: Patient here to review recent imaging she had done. Allergies Linalool Allergy (Unknown, Uncoded 03/25/24 10:38) Hives Medication List - Last Reconciled 03/25/24 by ILIANA Serna ascorbate calcium (vitamin C) 500 mg PO DAILY betamethasone dipropionate 0.05% 1 appl topical DAILY PRN cholecalciferol (vitamin D3) 50 mcg PO DAILY Tobacco use date assessed: 12/13/23 Dental Screening Dental Screen Date: 12/13/23 HPI 3 month follow up HPI Details Pt reports that her tachycardia has improved. She reports that her anxiety is manageable with only one recent episode of anxiety. Pt is going outside more and gardening. She is doing fairly well. Denies any SI and HI. [facility] Medical History Abnormal uterine bleeding (AUB) Surgical History History of delivery (10/04/19) Social History Housing: House Alcohol intake: current Patient Tobacco Use Status: Never used Tobacco e-Cigarette/Vaping Use: Never Used Second Hand Smoke Exposure: No service: No Current occupational status: employed and unemployed Cognitive needs: No Hearing needs: No Vision needs: No Female Reproductive History Menstrual Age of Menarche: 12 Questionnaire Thrive Questionnaire Date Thrive assessed: 05/18/22 GEOVANI-7 AMB Questionnaire GEOVANI-7 Date GEOVANI - 7 assessed: 12/13/23 Source: Developed by Drs. Miguel Rosas, Daniela Sanches, Esdras Singh and colleagues, with an educational luis manuel from [employer]. Review of Systems Const Reports as per HPI Physical exam (Primary Care) Vital Signs: Last Vital Signs Pulse 82 03/25/24 10:37 BP 118/82 03/25/24 10:37 Pulse Ox 99 03/25/24 10:37 Oxygen Delivery Method Room Air 03/25/24 10:37 BMI result Body Mass Index 29.3 Tobacco/Smoking Status: Tobacco use Status Tobacco use date assessed 12/13/23 03/25/24 10:37 Patient Tobacco Use Status Never used Tobacco 03/25/24 10:37 e-Cigarette/Vaping Use Never Used 03/25/24 10:37 Thrive Assessment: Date of Thrive Assessment Date Thrive assessed 05/18/22 03/25/24 10:37 Const General: cooperative Orientation/consciousness: patient oriented x3 Resp Effort & Inspection: normal respiratory effort Auscultation: clear to auscultation bilaterally Cardio Rate: regular rate Rhythm: regular rhythm Heart sounds: S1 normal heart sound present and S2 normal heart sound present Neuro General: patient oriented x3 Psych Appearance: grossly normal Mental Status: mental status grossly normal Speech and movement: Normal speech and movement present Affect: normal affect Attitude: cooperative Thought process: Normal thought process present Thought content: Normal thought content present Insight: Good insight present (Psych) Judgement: Good judgement present (Psych) Assessment and Plan Assessment & Plan (1) Anxiety: Code(s): F41.9 - Anxiety disorder, unspecified Plan: anxiety seems better right now. Encouraged to continue gardening as she is, and mentioned relaxation techniques Plan The patient agreed to the use of a medical laboratory specialist for this encounter. Scribed for ILIANA Law by Stormy Tiwari medical laboratory specialist, on 03/25/2024 at 10:45 EST. Coding Level of Care Code Est Pt Level 3 (19804) Diagnoses Anxiety F41.9
[2024-03-25 10:37] VITALS: BP 118/82; PULSE 82; O2SAT 99; BMI 29.3
== END 2024-03-25 11:18 | disposition home or self-care (01) ==
PROVIDERS: PCP Nurse Practitioner Family; Visit Provider Nurse Practitioner Family
DX: F41.9 Anxiety disorder, unspecified (principal)
CPT/HCPCS: 99213

== ENCOUNTER 2024-04-11 15:35 | Outpatient (AMB) | payer BC, SELFPAY ==
[2024-04-11 15:36] VITALS: BP 116/68; BMI 29.3
--- NOTE | 2024-04-11 15:36 | MHC.OFFVIS ---
Vital Signs 04/11/24 15:36 Height 5 ft 4 in Weight 171 lb BMI 29.3 BP 116/68 Blood Pressure Location Lt brachial Position Sitting Intake Visit Reasons: EMB Results Allergies Linalool Allergy (Unknown, Uncoded 04/11/24 15:36) Hives HPI Comments Details: Patient is here today for her endometrial biopsy results history of AUB. She reports she had some intermittent brown discharge following a week after her last cycle. She denies any odors itching pelvic pain or other symptoms. She would prefer to have a pelvic exam today to make sure everything is healed since the biopsy. Endometrium, biopsy: - Few superficial fragments of inactive endometrium; no atypia or hyperplasia identified. - Endocervical mucosa within normal limits; mucoinflammatory material. PFSH Medical History Abnormal uterine bleeding (AUB) Surgical History History of delivery (10/04/19) Social History Housing: House Alcohol intake: current Patient Tobacco Use Status: Never used Tobacco e-Cigarette/Vaping Use: Never Used Second Hand Smoke Exposure: No service: No Current occupational status: employed and unemployed Cognitive needs: No Hearing needs: No Vision needs: No Female Reproductive History Menstrual Age of Menarche: 12 Review of Systems Const All systems reviewed & are unremarkable except as noted in HPI and below Physical Exam Vital Signs: Last Vital Signs BP 116/68 04/11/24 15:36 BMI result Body Mass Index 29.3 Const General: cooperative, healthy appearing and no acute distress Orientation/consciousness: patient oriented x3 GI Inspection: Yes normal to inspection Palpation (GI): Soft to palpation and Other GI palpation findings present (Nontender) Rectal Exam - Female: visual inspection normal General: Yes bladder normal to palpation External Female Exam: normal appearance of the urethra Speculum Exam - Vagina: normal appearance of the vagina, normal palpation and normal vaginal discharge Speculum Exam - Cervix: normal appearance of the cervix and normal palpation Bimanual exam- vagina & uterus: normal bimanual exam, normal palpation, uterine size normal, bladder normal to palpation, normal palpation, uterine shape normal and non-tender Bimanual Exam- Adnexa, other: normal adnexae Neuro General: patient oriented x3 Results Reviewed Results Reviewed: [facility] [address] [address] Ultrasound Report Signed Patient: Marie Martin MR#: [id number] : 1990 Acct:[id number] Age/Sex: 33 / F ADM Date: 07/17/23 Loc: HO.HMGCX Attending Dr: Nicole Purdy CNM Ordering Physician: Nicole Purdy CNM Date of Service: 07/17/23 Procedure(s): US pelvic and transvaginal Accession Number(s): [id number] cc: Pelon Biggs DOG LICENSE OFFICER SUPERVISOR-; Nicole Purdy CNM~ EXAMINATION: US PELVIS CLINICAL INFORMATION: Abnormal uterine bleeding. No prior imaging. Last menstrual period 06/25/2023. COMPARISON: None available. TECHNIQUE: Ultrasound of the pelvis is performed using both transabdominal and transvaginal transducers along with Doppler. Transvaginal imaging is performed due to inadequate visualization transabdominally. FINDINGS: The uterus measures 8.0 x 4.5 x 5.4 cm and is heterogeneous. No discrete fibroids are identified. Endometrium is thick and echogenic with thickness of 1.0 cm. Nabothian cysts are present. Right ovary measures 2.8 x 1.7 x 1.8 cm, volume 4.64 mL Small amount of free fluid in the pelvis. Left ovary measures 2.7 x 2.1 x 2.9 cm, volume 8.6 mL. A 1.9 x 1.2 x 1.6 cm thick-walled complex left ovarian cyst is characteristic of a corpus luteum. There is no indication for follow up imaging per departmental criteria this time. US/US pelvic and transvaginal IMPRESSION: 1. No discrete fibroids. 2. Echogenic endometrium with thickness of 1.0 cm. Correlation with menstrual history and gynecologic consultation recommended to determine further management for this patient with history of abnormal uterine bleeding. Dictated By: Sayra Linares MD Signed By: <Electronically signed by Sayra Linares MD in OV> 07/23/23 1511 DD/ 1312 TD/TT: Artificial Intelligence Specialist: Assessment & Plan Assessment & Plan (1) Encounter to discuss test results: Code(s): Z71.2 - Person consulting for explanation of examination or test findings Plan Discussed: Reassured normal exam today. Endometrial biopsy results. Monitor menstrual cycles, report any unscheduled bleeding, bleeding episodes <24 days apart or heavy/prolonged menstrual bleeding. Call the office for a follow up for any concerns. Options for cycle control to include Mirena, OCPs, other products. She has not interested in control at this time. She prefers to plan to observe for the cycles and call if there is any concerns for sooner follow-up. Next appointment is scheduled for annual in September. All of her questions and concerns were addressed to the best of my ability and shared decision making. She is agreeable to the plan of care. This note is constructed using voice recognition software. While every effort has been made to ensure accuracy, waterworks supervisor errors may have been included. Coding Level of Care Code Est Pt Level 3 (39759) Diagnoses Encounter to discuss test results Z71.2
== END 2024-04-11 16:16 | disposition home or self-care (01) ==
PROVIDERS: PCP Nurse Practitioner Family; Visit Provider Advanced Practice Midwife
DX: Z71.2 Person consulting for explanation of examination or test findings (principal)
CPT/HCPCS: 99213

== ENCOUNTER → 2024-04-11 15:35 | Outpatient (BNVA) | payer BC, SELFPAY | PROVIDERS: PCP Nurse Practitioner Family; Visit Provider Advanced Practice Midwife ==

== ENCOUNTER 2024-05-12 08:56 | Outpatient (AMB) | payer BC, SELFPAY ==
--- NOTE | 2024-05-12 09:39 | AM.OFFVISNUR ---
Intake Visit Reasons: 2nd gardasil vaccine Appeals Representative Required: No Allergies Linalool Allergy (Unknown, Uncoded 04/11/24 15:36) Hives Is last menstrual period known: No Post menopausal: No Patient : No Nursing Note Pt is here for her 2nd Gardasil injection. First injection was given 03/13/24. No c/o. Pt reports no problems with first injection. Pt tolerated injection well and she is scheduled for her final (third) injection in August. Pt verbalizes understanding and agrees with plan. No further questions. Assessment & Plan Assessment & Plan Orders: Orders Human Papillomavirus Immunization Today Z23 - Encounter for immunization
== END 2024-05-12 09:47 | disposition home or self-care (01) ==
LOC: HO.HWS 08:56
PROVIDERS: PCP Nurse Practitioner Family; Visit Provider Advanced Practice Midwife
DX: Z23 Encounter for immunization (principal)

== ENCOUNTER → 2024-05-12 08:56 | Outpatient (BNVA) | payer BC, SELFPAY | PROVIDERS: PCP Nurse Practitioner Family; Visit Provider Advanced Practice Midwife | DX: Z23 Encounter for immunization (principal) | CPT/HCPCS: 90471; 90651; 99211 ==

== ENCOUNTER 2024-06-17 09:19 | Outpatient (AMB) | payer BC, SELFPAY ==
--- NOTE | 2024-06-17 09:23 | MHC.PC.OV ---
Vital Signs 06/17/24 09:24 Height 5 ft 4 in Weight 170 lb BMI 29.2 BP 112/70 Blood Pressure Location Rt brachial Position Sitting Pulse 86 Pulse Source Pulse Oximeter Pulse Oximetry (%) 98 Intake Visit Reasons: Annual PE Intake Note: pt is here for annual exam Operation Manager Required: No Accompanied by: Self / Same As Patient Allergies Linalool Allergy (Unknown, Uncoded 06/17/24 09:24) Hives Tobacco use date assessed: 12/13/23 Dental Screening Dental Screen Date: 12/13/23 HPI Annual PE HPI Details Pt is here for a PE. Will order labs. Has a health evaluator. [facility] Medical History Abnormal uterine bleeding (AUB) Surgical History History of delivery (10/04/19) Social History Housing: House Alcohol intake: current Patient Tobacco Use Status: Never used Tobacco e-Cigarette/Vaping Use: Never Used Second Hand Smoke Exposure: No service: No Current occupational status: employed and unemployed Cognitive needs: No Hearing needs: No Vision needs: No Female Reproductive History Menstrual Age of Menarche: 12 Questionnaire PHQ-9 Over the last 2 weeks, how often have you been bothered by any of the following problems? 1. Little interest or pleasure in doing things: not at all 2. Feeling down, depressed, or hopeless: not at all 3. Trouble falling or staying asleep, or sleeping too much: not at all 4. Feeling tired or having little energy: not at all 5. Poor appetite or overeating: not at all 6. Feeling bad about yourself - or that you are a failure or have let yourself or your family down: not at all 7. Trouble concentrating on things, such as reading the newspaper or watching television: not at all 8. Moving or speaking so slowly that other people could have noticed. Or the opposite - being so fidgety or restless that you have been moving around a lot more than usual: not at all 9. Thoughts that you would be better off or of hurting yourself in some way: not at all Total score: 0 Depression Screening Interpretation: Negative Depression Screening Done: Yes 56996 - PHQ-9 Billing: Yes Source: Developed by Drs. Miguel Rosas, Daniela Sanches, Esdras Singh and colleagues, with an educational luis manuel from [employer]. Thrive Questionnaire Date Thrive assessed: 06/17/24 I am a: Patient What is your living situation today?: I have a steady place to live Within the past 12 months, did the food you bought not last and you didn't have the money to get more?: Never true Within the past 12 months, did you worry whether your food would run out before you got money to buy more?: Never true Do you have trouble paying for medicines?: No Do you have trouble getting transportation to medical appointments?: No Do you have trouble paying your heating and electricity bill?: No Do you have trouble taking care of your child, family member or friend?: No Do you have trouble with day-to-day activities such as bathing, preparing meals, shopping, managing finances, etc.?: No Are you currently unemployed and looking for a job?: No Are you interested in more education?: No Please select the resources that you would like help with: None Currently or been in a relationship where the following occur: No concerns reported THRIVE Score: 0 AUDIT C Alcohol Use Questionnaire (AUDIT-C) 1. How often do you have a drink containing alcohol?: 2-4 times a month 2. How many drinks containing alcohol do you have on a typical day when you are drinking?: 3 or 4 3. How often do you have six or more drinks on one occasion?: Less than monthly Total Score: 4 Score Reviewed/Action Taken: Yes GEOVANI-7 AMB Questionnaire GEOVANI-7 Date GEOVANI - 7 assessed: 06/17/24 Feeling nervous, anxious, or on edge: 0 = Not at all Not being able to stop or control worryin = Not at all Worrying too much about different things: 1 = Several days Trouble relaxin = Not at all Being so restless that it is hard to sit still: 0 = Not at all Becoming easily annoyed or irritable: 0 = Not at all Feeling afraid as if something awful might happen: 0 = Not at all Total GEOVANI-7 score (0-4 normal; 5-9 mild; 10-14 moderate; 15-21 severe): 1 Source: Developed by Drs. Miguel Rosas, Daniela Sanches, Esdras Singh and colleagues, with an educational luis manuel from [employer]. GEOVANI-7 Assessment Billing GEOVANI-7 Assessment Tool: GEOVANI-7 Assessment 66014 Review of Systems Const Denies chills and Denies fever(s) Eyes Denies blurry vision ENT Denies vertigo, Denies dizziness and Denies sore throat Card Denies chest pain at rest, Denies chest pain with activity, Denies diaphoresis, Denies dyspnea and Denies dyspnea on exertion Resp Denies cough, Denies dyspnea, Denies dyspnea on exertion and Denies wheezing GI Denies abdominal pain, Denies melena, Denies hematochezia, Denies constipation, Denies diarrhea and Denies loose stools Denies hematuria Musc Denies numbness and Denies tingling Skin/Breast Denies lesions Neuro Denies vertigo, Denies dizziness, Denies numbness and Denies tingling Psych Denies anxiety, Denies depression, Denies homicidal ideation, Denies suicidal ideation and Denies other (substance abuse) Aller/Immun Denies wheezing Physical exam (Primary Care) Vital Signs: Last Vital Signs Pulse 86 06/17/24 09:24 BP 112/70 06/17/24 09:24 Pulse Ox 98 06/17/24 09:24 BMI result Body Mass Index 29.2 Tobacco/Smoking Status: Tobacco use Status Tobacco use date assessed 12/13/23 06/17/24 09:26 Patient Tobacco Use Status Never used Tobacco 06/17/24 09:26 e-Cigarette/Vaping Use Never Used 06/17/24 09:26 PHQ-9: PHQ-9 Score PHQ-9: Total score 0 06/17/24 09:38 Depression Screening Interpretation: Negative Thrive Assessment: Date of Thrive Assessment Date Thrive assessed 06/17/24 06/17/24 09:26 Currently or been in a relationship where the following occur: No concerns reported Const General: cooperative Nutritional Appearance: well nourished Orientation/consciousness: patient oriented x3 HENMT Head: Yes normal to inspection, Yes normocephalic and Yes atraumatic Ears: TM's normal bilaterally Eyes General: appearance normal, both eyes and all related structures Alignment and Position: alignment normal and position normal Neck Neck: Yes normal visual inspection, Yes no lymphadenopathy and Yes supple Resp Effort & Inspection: normal respiratory effort Auscultation: clear to auscultation bilaterally Cardio Rate: regular rate Rhythm: regular rhythm Heart sounds: S1 normal heart sound present, S2 normal heart sound present and no murmurs GI Palpation (GI): Soft to palpation and nontender Auscultation: normal bowel sounds Skin Rashes: no rashes Neuro General: patient oriented x3, moves all extremities, no focal motor deficits and deep tendon reflexes 2+ bilaterally Romberg Test: Negative Psych Appearance: grossly normal Mental Status: mental status grossly normal Speech and movement: Normal speech and movement present Affect: normal affect Attitude: cooperative Thought process: Normal thought process present Thought content: Normal thought content present Insight: Good insight present (Psych) Judgement: Good judgement present (Psych) Assessment and Plan Assessment & Plan (1) Physical exam: Code(s): Z - Encounter for general adult medical examination without abnormal findings Plan The patient agreed to the use of a medical review coordinator for this encounter. Scribed for TAMI Law-ALYSSA by Stormy Tiwari medical review coordinator, on 06/17/2024 at 09:40 EST. Orders: Orders Comprehensive [place]. Panel Fast Today Z00.00 - Encounter for general adult medical examination without abnormal findings UA CC w/rflx Micro + Cult Today Z00.00 - Encounter for general adult medical examination without abnormal findings Lipid Panel Today Z00.00 - Encounter for general adult medical examination without abnormal findings Complete Blood Count Auto Diff Today Z00.00 - Encounter for general adult medical examination without abnormal findings TSH reflex Free T4 Today Z00.00 - Encounter for general adult medical examination without abnormal findings Coding Level of Care Code Est Pt Prev Care 18-39y(16633) Diagnoses Physical exam Z00.00 Additional Codes GEOVANI-7 Assessment Billing - GEOVANI-7 Assessment Tool: GEOVANI-7 Assessment 48560 ([id number])
[2024-06-17 09:24] VITALS: BP 112/70; PULSE 86; O2SAT 98; BMI 29.2
== END 2024-06-17 09:49 | disposition home or self-care (01) ==
PROVIDERS: PCP Nurse Practitioner Family; Visit Provider Nurse Practitioner Family
DX: Z00.00 Encounter for general adult medical examination without abnormal findings (principal)
CPT/HCPCS: 99395

== ENCOUNTER 2024-06-21 07:57 | Outpatient (REF) | payer BC, SELFPAY ==
[2024-06-21 10:57] LABS: MANUAL DIFF FLAG NO
[2024-06-21 11:00] LABS: Appearance Urine Clear; Color Urine Yellow; Glucose Urine UA Negative (Negative); Leukocyte Esterase Urine Negative (Negative); Nitrite Urine Negative (Negative); PH 7.5 (5.0-9.0); Specific Gravity - Urine <= 1.005 (1.005-1.025); UMIC TRIGGER UACC YES; Urine Blood Trace (Negative); Urine Ketones Negative (Negative); Urine Protein Negative (Neg-Trace)
[2024-06-21 11:02] LABS: Bacteria Urine None Seen (None Seen); Hyaline Casts Urine 0-2 /LPF (0-2); RBC Urine 0-2 /HPF (0-2); Squamous Epithelial Cell Urine 0-2 /HPF (0-2); WBC Urine 0-5 /HPF (0-5)
[2024-06-21 11:07] LABS: Basophils Percent Auto 0.4 % (0-2); Eosinophils Absolute Auto 0.2 X10*3/uL (0.0-0.4); Eosinophils Percent Auto 2.1 % (0-4); Hematocrit 40.2 % (37.0-47.0); Hemoglobin 13.6 g/dl (12.0-16.0); Imm Gran Abs Auto 0.03 X10*3/uL (0.00-0.03); Imm Gran Pct Auto 0.3 % (0.0-0.4); Lymphocytes Absolute Auto 2.6 X10*3/uL (1.2-4.9); Lymphocytes Percent Auto 27.8 % (20-40); Mean Corpuscular HGB Conc 33.8 g/dl (31.0-35.0); Mean Corpuscular Hemoglobin 29.7 pg (27.0-33.0); Mean Corpuscular Volume 87.8 fL (80.0-98.0); Mean Platelet Volume 9.5 fL (9.4-12.3); Monocytes Absolute Auto 0.7 X10*3/uL (0.1-1.2); Monocytes Percent Auto 7.2 % (2-11); Neutrophils Absolute Auto 5.8 x10*3/uL (2.0-8.3); Neutrophils Percent Auto 62.2 % (45-73); Platelet Count 429 X10*3/uL (160-400); Red Blood Count 4.58 X10*6/uL (4.20-5.50); Red Cell Distribution Width 12.5 % (11.0-16.0); White Blood Count 9.4 X10*3/uL (4.8-10.8)
[2024-06-21 11:47] LABS: Alanine Aminotransferase 19 U/L (0-31); Albumin Level 4.5 g/dL (3.5-5.0); Alkaline Phosphatase 73 U/L (39-117); Anion Gap 10 (12-20); Aspartate Amino Transferase 16 U/L (5-31); Bilirubin Total 0.5 mg/dL (0.0-1.0); Blood Urea Nitrogen 11 mg/dL (9-16); Calcium 9.6 mg/dL (8.4-10.2); Carbon Dioxide 27 mmol/L (22-29); Chloride 103 mmol/L (96-108); Cholesterol 180 mg/dL (<200); Estimated Glomerular Filt Rate > 60; Glucose Fasting 102 mg/dL (60-99); HDL Cholesterol 54 mg/dL (>40); LDL Cholesterol Calculated 102 mg/dL (<100); Potassium 3.7 mmol/L (3.3-5.1); Sodium 136 mmol/L (135-145); Total Protein 8.1 g/dL (6.5-8.0); Triglycerides 120 mg/dL (<150)
== END 2024-06-21 07:58 | disposition home or self-care (01) ==
LOC: HO.HMGCLDS 07:57
PROVIDERS: PCP Nurse Practitioner Family; Visit Provider Nurse Practitioner Family
DX: Z00.00 Encounter for general adult medical examination without abnormal findings (principal)
CPT/HCPCS: 36415; 80053; 80061; 81001; 81003; 84443; 85025

== ENCOUNTER 2024-07-08 07:29 | Outpatient (REF) | payer BC, SELFPAY ==
[2024-07-08 10:15] LABS: MANUAL DIFF FLAG NO
[2024-07-08 10:18] LABS: Hematocrit 39.4 % (37.0-47.0); Hemoglobin 13.2 g/dl (12.0-16.0); Mean Corpuscular HGB Conc 33.5 g/dl (31.0-35.0); Mean Corpuscular Hemoglobin 29.4 pg (27.0-33.0); Mean Corpuscular Volume 87.8 fL (80.0-98.0); Red Blood Count 4.49 X10*6/uL (4.20-5.50); Red Cell Distribution Width 12.9 % (11.0-16.0); White Blood Count 10.1 X10*3/uL (4.8-10.8)
[2024-07-08 10:19] LABS: Basophils Percent Auto 0.3 % (0-2); Eosinophils Absolute Auto 0.1 X10*3/uL (0.0-0.4); Eosinophils Percent Auto 1.4 % (0-4); Imm Gran Abs Auto 0.03 X10*3/uL (0.00-0.03); Imm Gran Pct Auto 0.3 % (0.0-0.4); Lymphocytes Absolute Auto 2.6 X10*3/uL (1.2-4.9); Lymphocytes Percent Auto 25.2 % (20-40); Monocytes Absolute Auto 0.6 X10*3/uL (0.1-1.2); Monocytes Percent Auto 5.9 % (2-11); Neutrophils Absolute Auto 6.8 x10*3/uL (2.0-8.3); Neutrophils Percent Auto 66.9 % (45-73); Platelet Count 338 X10*3/uL (160-400)
[2024-07-08 10:20] LABS: Appearance Urine Clear; Color Urine Yellow; Glucose Urine UA Negative (Negative); Leukocyte Esterase Urine Negative (Negative); Nitrite Urine Negative (Negative); Specific Gravity - Urine 1.015 (1.005-1.025); UMIC TRIGGER UACC YES; Urine Blood Small (1+) (Negative); Urine Ketones Negative (Negative); Urine Protein Negative (Neg-Trace)
[2024-07-08 10:27] LABS: Bacteria Urine None Seen (None Seen); Hyaline Casts Urine 0-2 /LPF (0-2); Squamous Epithelial Cell Urine 0-2 /HPF (0-2); WBC Urine 0-5 /HPF (0-5)
[2024-07-08 11:01] LABS: TSH reflex Free T4 0.87 uIU/mL (0.32-4.0)
[2024-07-10 05:45] LABS: Thyroid Peroxidase Antibodies 15 IU/mL (<9)
== END 2024-07-08 07:30 | disposition home or self-care (01) ==
LOC: HO.HMGCLDS 07:29
PROVIDERS: PCP Nurse Practitioner Family; Visit Provider Nurse Practitioner Family
DX: D75.839 Thrombocytosis, unspecified (principal); F41.9 Anxiety disorder, unspecified
CPT/HCPCS: 36415; 81001; 84443; 85025; 86376

== ENCOUNTER → 2024-09-10 08:57 | Outpatient (BNVA) | payer BC, SELFPAY | PROVIDERS: PCP Nurse Practitioner Family; Visit Provider Advanced Practice Midwife ==

== ENCOUNTER 2024-09-15 12:59 | Outpatient (AMB) | payer BC, SELFPAY ==
[2024-09-15 13:05] VITALS: BMI 29.2
--- NOTE | 2024-09-15 13:05 | AM.OFFVISNUR ---
Vital Signs 09/15/24 13:05 Height 5 ft 4 in Weight 170 lb BMI 29.2 Intake Visit Reasons: 3rd gardasil vaccine ok per jose maria Allergies Linalool Allergy (Unknown, Uncoded 06/17/24 09:24) Hives Nursing Note KERRIE Hale, is here today for her scheduled Gardasil inj. no c/o pt has completed all 3 vaccinations, for HPV. Immunizations Gardasil 9 (PF) 0.5 mL intramuscular suspension Performing Provider: Nicole Purdy CNM Performing Location: [facility] [place] [facility] Administered by: Jose Maria Lozano LPN on 09/15/24 13:05 Dose Route Admin Location Dispensed Lot Number Expiration Date [facility] [employer] Worker 0.5 mL IM Right Deltoid 0.5 mL [id number] 11/02/25 8062-6088-60 [employer] D VIS Given Date VIS Provided VIS Publication Date 09/15/24 Single Vaccine 21 Eligibility Eligibility Date Funding Source Not [facility] Eligible 09/15/24 Private Assessment & Plan Assessment & Plan Orders: Orders Human Papillomavirus Immunization Today Z23 - Encounter for immunization Medications: New Gardasil 9 (PF) (human papillomav vac,9-hal(PF)) 0.5 mL IM ONCE 0.5 mL 0RF NS Z23 - Encounter for immunization
== END 2024-09-15 13:24 | disposition home or self-care (01) ==
LOC: HO.HWS 12:59
PROVIDERS: PCP Nurse Practitioner Family; Visit Provider Advanced Practice Midwife
DX: Z23 Encounter for immunization (principal)

== ENCOUNTER → 2024-09-15 12:59 | Outpatient (BNVA) | payer BC, SELFPAY | PROVIDERS: PCP Nurse Practitioner Family; Visit Provider Advanced Practice Midwife | DX: Z23 Encounter for immunization (principal) | CPT/HCPCS: 90471; 90651; 99211 ==

== ENCOUNTER 2024-10-02 15:37 | Outpatient (AMB) | payer BC, SELFPAY ==
--- NOTE | 2024-10-02 15:38 | MHC.OFFWIV ---
Intake Vital Signs 10/02/24 15:44 Weight 172 lb BP 122/80 Blood Pressure Location Lt brachial Position Sitting Pulse 87 Pulse Source Pulse Oximeter Pulse Oximetry (%) 100 Oxygen Delivery Method Room Air Intake Visit Reasons: EP Shoulder pain Rt Intake Note: Patient here for right arm pain after having 1st cartisol shot. Patient Tobacco Use Status: Never used Tobacco Allergies Linalool Allergy (Unknown, Uncoded 10/02/24 15:45) Hives Do you need a note to return to daycare/school/sports/work: No HPI HPI Comments History of Present Illness Details Pt is a 34 YO female c/o right upper arm pain 3rd shot of Guardisil on 09/15. She states she had pain as soon as it was administered, she describes it as sharp. Denies redness or swelling after the injection. She notes the injection to be very high up on the shoulder, she states the pain is improving but still there. Worse when holding her child or cooking and at the end of the day. Denies fevers or brusing or hard lump in the area. [facility] Medical History Abnormal uterine bleeding (AUB) Surgical History History of delivery (10/04/19) Social History Housing: House Alcohol intake: current Patient Tobacco Use Status: Never used Tobacco e-Cigarette/Vaping Use: Never Used Second Hand Smoke Exposure: No service: No Current occupational status: employed and unemployed Cognitive needs: No Hearing needs: No Vision needs: No Female Reproductive History Menstrual Age of Menarche: 12 Review of Systems Const All systems reviewed & are unremarkable except as noted in HPI and below Physical Exam Vital Signs: Last Vital Signs Pulse 87 10/02/24 15:44 BP 122/80 10/02/24 15:44 Pulse Ox 100 10/02/24 15:44 Oxygen Delivery Method Room Air 10/02/24 15:44 Const General: cooperative, healthy appearing, comfortable, no acute distress and well developed Orientation/consciousness: patient oriented x3 Limitations: no limitations HEENT Head: Yes normal to inspection Ears: hearing grossly normal bilaterally General nose exam: Normal external nose present Face and sinus: Yes normal facial exam Eyes General: appearance normal, both eyes and all related structures Neck Neck: Yes normal visual inspection and Yes full ROM Resp Effort & Inspection: normal respiratory effort and able to speak in complete sentences Skin General skin exam: no rashes or lesions noted Neuro General: patient oriented x3 Extrem Other: Left upper arm, no edema, no erythema, shoulder has full range of motion. No signs of infection noted no tenderness to palpation of the entire biceps muscle and lateral shoulder General: Yes normal to inspection Assessment & Plan Assessment & Plan (1) Left upper arm pain: Code(s): M79.622 - Pain in left upper arm Plan: Pain is likely secondary to the vaccination being given a little too high on the arm. Recommended patient take naproxen as needed for pain, use ice and rest. It will likely resolve in the next 2-3 weeks. If it does not, she should follow up with her PCP. Coding Level of Care Code Est Pt Level 3 (93561) Diagnoses Left upper arm pain M79.622
[2024-10-02 15:44] VITALS: BP 122/80; PULSE 87; O2SAT 100
== END 2024-10-02 16:38 | disposition home or self-care (01) ==
PROVIDERS: PCP Nurse Practitioner Family; Visit Provider Physician Assistant
DX: M79.622 Pain in left upper arm (principal)

== ENCOUNTER 2024-10-27 08:10 | Outpatient (REF) | payer BC, SELFPAY ==
[2024-10-27 11:15] LABS: Influenza A PCR NEGATIVE (Negative); Influenza B PCR NEGATIVE (Negative); Resp Syncy Virus RNA Qual PCR NEGATIVE (Negative); SARS COV2 PCR INHOUSE NEGATIVE (Negative)
== END 2024-10-27 08:11 | disposition home or self-care (01) ==
LOC: HO.LAB 08:10
PROVIDERS: Physician Assistant; PCP Nurse Practitioner Family
DX: J06.9 Acute upper respiratory infection, unspecified (principal); Z13.9 Encounter for screening, unspecified
CPT/HCPCS: 0241U; 81003

== ENCOUNTER 2024-10-27 08:10 | Outpatient (AMB) | payer BC, SELFPAY ==
[2024-10-27 08:14] VITALS: BP 104/80; PULSE 99; TEMP 37; O2SAT 99; BMI 29.5
--- NOTE | 2024-10-27 08:14 | AM.OFFWIN_ITS ---
Intake Vital Signs 10/27/24 08:14 Height 5 ft 4 in Weight 172 lb BMI 29.5 BP 104/80 Blood Pressure Location Rt brachial Position Sitting Pulse 99 Pulse Source Pulse Oximeter Temp 98.6 F Temp Source Oral Pulse Oximetry (%) 99 Oxygen Delivery Method Room Air Intake Visit Reasons: EP on back, coughing, bloated, nauseaus Intake Note: Pt is here today c/o coughing and fatigue Patient Tobacco Use Status: Never used Tobacco Allergies Linalool Allergy (Unknown, Uncoded 10/27/24 08:16) Hives HPI HPI Comments History of Present Illness Details History - The patient is a 34-year-old female pr esenting with cough and cold symptoms. - After traveling, the patient experienc ed a dull back pain, subsequently developing runny nose, cough, and notable fatigue persisting for approximately five to six days. - A home test for blood sugar was conduc marsha with negative results; fatigue was distinctive compared to previous colds or COVID cases. - Nausea and bloating occurred transient ly one evening and resolved spontaneously. - The cough exhibits variations in sound intermittently, notably increasing at night and affecting sleep continuity. There are no accompanying symptoms of wheezing or dyspnea. - There is an absence of ear, sinus, or headache pain, with an isolated episode of dehydration. - The patient mentioned subjective fever sensations with rare instances of elevated temperature taking place alongside general sensation of warmth. - Tightness in the neck was reported, wi th sensations suggestive of constriction. - Urinary symptoms such as low back pain and incomplete emptying resembling kidney strain were noted but resolved post-rest and rehydration.Denies increased frequency or burning with urination. - No current pharmacological interventio ns, as previous usage of NyQuil induced nausea and dizziness. Physical Exam General: Cooperative, healthy appearing, comfortable and no acute distress Orientation/consciousness: Patient oriented x3 Limitations: No limitations Head: Normal to inspection Ears: Hearing grossly normal bilaterally, external ears normal and TM's normal bilaterally Nose: Normal external nose present, Normal nares present and Runny nose present Face and sinus: Normal facial exam and Yes sinuses nontender Mouth: Normal oral and palatal mucosa present and moist mucous membranes Throat: Yes tonsils normal, Yes uvula midline. Posterior oropharynx erythema Eyes: Appearance normal, both eyes and all related structures Neck: Tightness present Respiratory: Clear to auscultation bilaterally. Normal respiratory effort, able to speak in complete sentences, Actively coughing, no respiratory distress, not tachypneic, no tripod positioning and no use of accessory muscles Cardiovascular: Regular rate and rhythm. Normal S1 and S2 Skin: No rashes or lesions noted Neuro: Patient oriented x3 Extremities: Normal to inspection and Yes no clubbing, cyanosis or edema [facility] Medical History Abnormal uterine bleeding (AUB) Surgical History History of delivery (10/04/19) Social History Housing: House Alcohol intake: current Patient Tobacco Use Status: Never used Tobacco e-Cigarette/Vaping Use: Never Used Second Hand Smoke Exposure: No service: No Current occupational status: employed and unemployed Cognitive needs: No Hearing needs: No Vision needs: No Female Reproductive History Menstrual Age of Menarche: 12 Review of Systems Const All systems reviewed & are unremarkable except as noted in HPI and below Physical Exam Vital Signs: Last Vital Signs Temp 98.6 F 10/27/24 08:14 Pulse 99 10/27/24 08:14 BP 104/80 10/27/24 08:14 Pulse Ox 99 10/27/24 08:14 Oxygen Delivery Method Room Air 10/27/24 08:14 BMI result Body Mass Index 29.5 Results AMB Urinalysis, Automated UA Leukoctes 0 Carine/uL Last Edit by Kaur Benson CMA on 10/27/24 08:54 UA Nitrite Negative Last Edit by Kaur Benson CMA on 10/27/24 08:54 UA Urobilinogen 0.2 mg/dL Last Edit by Kaur Benson CMA on 10/27/24 08:54 UA Protein 0 mg/dL Last Edit by Kaur Benson CMA on 10/27/24 08:54 UA pH 7.0 Last Edit by Kaur Benson CMA on 10/27/24 08:54 UA Blood 25 Demetrio/uL Last Edit by Kaur Benson CMA on 10/27/24 08:54 UA Specific [place] 1.010 Last Edit by Kaur Benson CMA on 10/27/24 08:54 UA Ketone Negative Last Edit by Kaur Benson CMA on 10/27/24 08:54 UA Bilirubin 0 mg/dL Last Edit by Kaur Benson CMA on 10/27/24 08:54 UA Glucose 0 mg/dL Last Edit by Kaur Benson CMA on 10/27/24 08:54 Results Reviewed Results Reviewed: Laboratory Last Values Urine pH (Auto) 7.0 10/27/24 08:53 Specific [place] (Auto) 1.010 10/27/24 08:53 Urine Protein (Auto) 0 mg/dL 10/27/24 08:53 Glucose (UA)(Auto) 0 mg/dL 10/27/24 08:53 Urine Ketones (Auto) Negative 10/27/24 08:53 Urine Blood (Auto) 25 Demetrio/uL 10/27/24 08:53 Urine Nitrite (Auto) Negative 10/27/24 08:53 Urine Bilirubin (Auto) 0 mg/dL 10/27/24 08:53 Urine Urobilinogen (Auto) 0.2 mg/dL 10/27/24 08:53 Leukocyte Esterase (Auto) 0 Carine/uL 10/27/24 08:53 Assessment & Plan Assessment & Plan (1) URI, acute: Code(s): J06.9 - Acute upper respiratory infection, unspecified Plan: Urine test negative for blood and infection. Influenza, COVID-19, and RSV testing are recommended, including PCR testing for precise COVID detection. The patient's respiratory exam revealed clear lungs, and vital signs are stable, aligning with supportive care as the initial approach. The patient is counseled to maintain adequate hydration, especially noted after the reported dehydration. She should monitor her symptoms closely, with the possibility of reconsidering pharmaceutical options if symptoms persist or worsen. Further evaluation may be necessary should new or intensifying symptoms arise beyond the current presentation. Carrol noel sent for cough at night. Patient was informed and verbally consented to the use of an ambient scribe for clinic note documentation during this visit (2) Low back pain: Code(s): M54.50 - Low back pain, unspecified Qualifiers: Back pain laterality: bilateral Chronicity: acute Sciatica presence: without sciatica Qualified Code(s): M54.50 - Low back pain, unspecified Plan: A urine test is advised to rule out urinary tract infection, negative for infection or blood. Orders: Orders AMB Urinalysis Automated Today Z13.9 - Encounter for screening, unspecified SARS-CoV2/FLU/RSV Today J06.9 - Acute upper respiratory infection, unspecified Medications: New benzonatate 200 mg PO TID PRN 10 caps 0RF cough Coding Level of Care Code Est Pt Level 4 (54949) Diagnoses URI, acute J06.9 Acute bilateral low back pain without sciatica M54.50 Back pain laterality: bilateral Chronicity: acute Sciatica presence: without sciatica
== END 2024-10-27 09:14 | disposition home or self-care (01) ==
PROVIDERS: PCP Nurse Practitioner Family; Visit Provider Physician Assistant
DX: J06.9 Acute upper respiratory infection, unspecified (principal); M54.50 Low back pain, unspecified; Z13.9 Encounter for screening, unspecified

== ENCOUNTER 2024-12-09 14:36 | Outpatient (AMB) | payer BC, SELFPAY ==
--- NOTE | 2024-12-09 14:39 | A.OFFVIS_ITS ---
Vital Signs 12/09/24 14:40 Height 5 ft 4 in Weight 172 lb BMI 29.5 BP 124/70 Intake Visit Reasons: TANK HOOP BENDER annual exam Pegger Dobby Looms: Pegger Dobby Looms Present (Shirley) Allergies Linalool Allergy (Unknown, Uncoded 12/09/24 14:40) Hives Is last menstrual period known: Yes Last menstrual period: 11/12/24 HPI Comments Details: She is a premenopausal woman presenting for annual examination. Doing well with pyrometer mechanic concerns: Breast tender left side around the areola x 2-3 cycles. No nipple discharge, no injuries, prior biopsies. Also has some pigmented skin lesions around her areola predominantly on the right side that are nontender. She reports she is having lower right quadrant pain intermittently sometimes associated with gas. She denies any urinary symptoms. Regular monthly menses x 5-6d, September cycle heavier. Currently is sexually active. She denies vaginal itching and irritation. STI screening offered; she declines. Uses condoms, not interested in control at this time. She tries to eat healthy and stays active with exercise. Denies family history of breast, ovarian or colon cancer. Last pap smear 2023, negative. [facility] Medical History Abnormal uterine bleeding (AUB) Surgical History History of delivery (10/04/19) Family History (Updated 12/09/24 @ 14:46 by REENA Garber) Mother Uterine fibroid Social History Housing: House Alcohol intake: current Patient Tobacco Use Status: Never used Tobacco e-Cigarette/Vaping Use: Never Used Second Hand Smoke Exposure: No service: No Current occupational status: employed and unemployed Cognitive needs: No Hearing needs: No Vision needs: No Female Reproductive History Menstrual Age of Menarche: 12 Duration of menses: 3-5 days Date of last menstrual period: 11/12/24 control method: condoms Total pregnancies: 1 Full term: 1 Number of Living Children: 1 Date of last pap smear: 02/08/24 (neg pap and hpv) Review of Systems Const All systems reviewed & are unremarkable except as noted in HPI and below Reports as per HPI Eyes Reports no additional complaints ENT Reports no additional complaints Card Reports no additional complaints Resp Reports no additional complaints GI Reports as per HPI and Reports no additional complaints Reports as per HPI Musc Reports no additional complaints Skin/Breast Reports as per HPI Neuro Reports no additional complaints Psych Reports no additional complaints Endo Reports no additional complaints Temo/Lymph Reports no additional complaints Aller/Immun Reports no additional complaints Physical Exam Vital Signs: Last Vital Signs BP 124/70 12/09/24 14:40 BMI result Body Mass Index 29.5 Const General: cooperative, healthy appearing, no acute distress, well developed and alert Orientation/consciousness: patient oriented x3 HEENT Head: Yes normal to inspection Eyes General: appearance normal, both eyes and all related structures Neck Neck: Yes normal visual inspection Thyroid: Thyroid normal Chest Chest palpation & inspection: normal inspection of the chest and other (no puckering, dimpling, peau de orange, retraction, discharge, masses) Breast/axilla inspection: normal inspection of the breasts Breast/axilla palpation: normal palpation of the breasts Resp Effort & Inspection: normal respiratory effort GI Inspection: Yes normal to inspection Palpation (GI): Soft to palpation Rectal Exam - Female: deferred General: Yes bladder normal to palpation External Female Exam: normal external appearance and normal appearance of the urethra Speculum Exam - Vagina: normal appearance of the vagina, normal palpation and normal vaginal discharge Speculum Exam - Cervix: normal appearance of the cervix and normal palpation Bimanual exam- vagina & uterus: normal bimanual exam, normal palpation, uterine size normal, bladder normal to palpation, normal palpation and non-tender Bimanual Exam- Adnexa, other: no masses Skin Other: Normal aging skin changes noted. General skin exam: no rashes or lesions noted Rashes: no rashes Neuro General: patient oriented x3 Cognition (Neuro): normal cognition Extrem General: Yes normal to inspection Psych Attitude: cooperative Thought process: Normal thought process present Assessment & Plan Assessment & Plan (1) Encounter for well woman exam with routine gynecological exam: Code(s): Z01.419 - Encounter for gynecological examination (general) (routine) without abnormal findings Category: Medical (2) Pelvic pain: Code(s): R10.2 - Pelvic and perineal pain Category: Medical Plan: Plan workup with pelvic ultrasound. Follow up in person or tele visit. Call if pain is worsening. Plan Discussed: Current recommendations for pap smears per ASCCP guidelines. Breast awareness and periodic breast exams. Comments skin changes with pigmentation, skin tags, jackson hemangiomas noted. She is seen by Dermatology additionally was told they are normal aging changes. Maintain a healthy lifestyle including a well balanced diet and routine exercise. Monitor menstrual cycles, report any unscheduled bleeding, bleeding episodes <24 days apart or heavy/prolonged menstrual bleeding. Call the office for a follow u p for any concerns. Patient verbalizes understanding and agrees to the plan of care. She was given opportunity to ask questions and all questions were answered to the best of my ability. RTO in one year for annual pyrometer mechanic examination. This note is constructed using voice recognition software. While every effort has been made to ensure accuracy, industrial registered nurse errors may have been included. Orders: Orders US pelvic and transvaginal Today R10.2 - Pelvic and perineal pain Coding Level of Care Code Est Pt Prev Care 18-39y(40024) Diagnoses Encounter for well woman exam with routine gynecological exam Z01.419 Pelvic pain R10.2
[2024-12-09 14:40] VITALS: BP 124/70; BMI 29.5
== END 2024-12-09 16:41 | disposition home or self-care (01) ==
PROVIDERS: PCP Nurse Practitioner Family; Visit Provider Advanced Practice Midwife
DX: Z01.419 Encounter for gynecological examination (general) (routine) without abnormal findings (principal); R10.2 Pelvic and perineal pain
CPT/HCPCS: 99395; 99459

== ENCOUNTER 2024-12-30 13:54 | Outpatient (REF) | payer BC, SELFPAY ==
--- NOTE | ~2024-12-30 | US_ITS ---
EXAMINATION: US PELVIS TRANSABDOMINAL AND TRANSVAGINAL HISTORY: R10.2 - Pelvic and perineal pain COMPARISON: Comparison is made with the prior examination dated 07/17/2023. TECHNIQUE: Transabdominal and endovaginal real-time 2D allen-scale ultrasound was performed. FINDINGS: Uterus: The uterus is normal in size, measuring 8.8 x 4.9 x 5.5 cm. Myometrium has a normal echotexture. No fibroids are identified. Endometrium: The endometrial stripe measures 11 mm in thickness. There are nabothian cysts in the cervix. Right ovary: The right ovary measures 1.8 x 1.8 x 1.7 cm. The right ovary is normal in size and echotexture. Left ovary: The left ovary measures 2.2 x 2.7 x 2.4 cm. The left ovary is normal in size and echotexture. Pelvic fluid: none. US/US pelvic and transvaginal IMPRESSION: Unremarkable pelvic ultrasound. Electronically signed by: Miguel Guzmán MD 12/30/2024 03:17 PM EDT
== END 2024-12-30 13:55 | disposition home or self-care (01) ==
LOC: HO.US 13:54
PROVIDERS: PCP Nurse Practitioner Family; Visit Provider Advanced Practice Midwife
DX: R10.2 Pelvic and perineal pain (principal)
CPT/HCPCS: 76830; 76856

== ENCOUNTER → 2024-12-30 13:56 | Outpatient (BNV) | payer BC, SELFPAY | PROVIDERS: PCP Nurse Practitioner Family; Visit Provider Radiology Diagnostic Radiology | DX: R10.2 Pelvic and perineal pain (principal) | CPT/HCPCS: 76830; 76856 ==

== ENCOUNTER 2025-01-06 12:47 | Outpatient (REF) | payer BC, SELFPAY ==
--- NOTE | ~2025-01-06 | US_ITS ---
CLINICAL HISTORY: R31.29 - Other microscopic hematuria US RENAL Comparison: US/NC/SR - US RENAL BI - 09/23/22 08:38 EST Findings: The right kidney measures 10.8 cm in length. The left kidney measures 10.9 cm in length. Renal cortical thickness and echotexture are within normal limits bilaterally. No hydronephrosis, shadowing calculus or cortical mass lesion. IMPRESSION: Unremarkable study. This document has been electronically signed by: Aziza Agosto DO on 01/07/2025 13:23:41
== END 2025-01-06 12:48 | disposition home or self-care (01) ==
LOC: HO.HMGCX 12:47
PROVIDERS: PCP Nurse Practitioner Family; Visit Provider Urology
DX: R31.29 Other microscopic hematuria (principal)
CPT/HCPCS: 76775

== ENCOUNTER → 2025-01-06 12:48 | Outpatient (BNV) | payer BC, SELFPAY | PROVIDERS: PCP Nurse Practitioner Family; Visit Provider Radiology Diagnostic Radiology | DX: R31.29 Other microscopic hematuria (principal) | CPT/HCPCS: 76775 ==

== ENCOUNTER 2025-01-15 09:22 | Outpatient (AMB) | payer BC, SELFPAY ==
--- NOTE | 2025-01-15 09:28 | A.OFFVIS_ITS ---
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 She denies gross hematuria. She has had previous workup including office cystoscopy performed last year 01/11/2023. She presents for fu, UA 1+ blood, no signs of infection. Discussed that some patients may have idiopathic microscopic hematuria. She remains anxious due to the persistent blood in the urine we will refer to Nephrology to ensure that complete workup has been offered to the patient. 30 minutes spent in review of records pertaining to this visit and including [id number] discussion with the patient and documentation of this visit. We will send urine for cytology as long as returns normal will continue follow-up with Urology prn. Results: US renal - 01/06/25-- kidneys within normal limits. 01/10/2024--Angely is a 33-year-old female here for 1 year follow-up due to persistence microscopic hematuria. She is on medication for blood pressure. She denies gross hematuria. She has had previous workup including office cystoscopy performed last year 01/11/2023. Discussed follow-up p.r.n. versus follow-up in 1 year to check urine. The patient wants to continue follow-up with Urology. I will send urine for cytology. Discussed plan to re-evaluate upper tracts with renal ultrasound. 01/11/2023--Marie Hale Angely is a 32-year-old female who presents to the clinic for cystoscopy procedure. The patient was provided naproxen 500 mg and ciprofloxacin 500 mg x 1 dose pre-procedure today. Denies experiencing pain while having full bladder. Denies having gross hematuria. Evaluation today: Blood:?25 Demetrio/uL, Leukocytes: negative. Bladder scan PVR: 0 mL. Consent was obtained to perform cystoscopy procedure. Cystoscopy: no suspicious bladder lesion found. Plan--Monitor, will check urinalysis and evaluate LUTS. Follow-up after one year and repeat urine cytology. 12/14/2022-- with LOUISE Chirinos--Marie Au is a pleasant 32-year-old female patient of Dr. Biggs. Patient presents to the office today as a new patient for microscopic hematuria. Patient states that weight last year in September she seeked emergency medicine care for urinary frequency and flank pain she had been experiencing. It appears an abdominal ultrasound was performed and these results were reviewed with the patient today. Bilateral kidneys with no hydronephrosis, lesions, or abnormalities noted. Normal renal ultrasound. No urinary tract calculi or evidence for pyelonephritis. In discussion with the patient today she reports a previous history of pyelonephritis at the age of approximately 17 years old when she was living in [place]. Currently patient denies any urological issues or complaints. However, she states she notices herself to have right upper quadrant abdominal pain as well as lower abdominal pressure when she does not drink adequate amount of fluid daily. She reports that when she stays well hydrated her symptoms seem to subside. In office urinalysis today continues with microscopic hematuria. Patient denies smoking history as well as workplace chemical exposures. She does have a history of a with her 3-year-old son. Currently she denies urinary urgency, urinary frequency, dysuria, foul-smelling urine, hematuria, changes in urinary stream, flank pain, fever, and or chills. When asked she does report to getting up approximately 1 time a night to void. Discussed cytology from 07/06 negative and patient with renal and abdominal imaging from July and September of last year with no noted abnormalities. Discussed further microscopic hematuria workup with in office cystoscopy. Discussed risks and benefits. At this time patient is agreeable and wishes to have cystoscopy for further assessment and evaluation. Renal US results ?10/03/2022-- Kidneys: WNL, No renal calculi found. Urine cytology results --12/14/2022-- Negative for malignancy. 01/10/24--Plan--urine for cytology. Follow-up in 1 year, renal ultrasound prior. [facility] Medical History Pelvic pain Abnormal uterine bleeding (AUB) Surgical History History of delivery (10/04/19) Family History Mother Uterine fibroid Social History Housing: House Alcohol intake: current Patient Tobacco Use Status: Never used Tobacco e-Cigarette/Vaping Use: Never Used Second Hand Smoke Exposure: No service: No Current occupational status: employed and unemployed Cognitive needs: No Hearing needs: No Vision needs: No Female Reproductive History Menstrual Age of Menarche: 12 Review of Systems Const All systems reviewed & are unremarkable except as noted in HPI and below Reports no additional complaints Eyes Reports no additional complaints ENT Reports no additional complaints Card Reports no additional complaints Resp Reports no additional complaints GI Reports no additional complaints Reports as per HPI Musc Reports no additional complaints Skin/Breast Reports system reviewed and no additional complaints, except as documented Neuro Reports no additional complaints Psych Reports no additional complaints Endo Reports no additional complaints Temo/Lymph Reports no additional complaints Aller/Immun Reports no additional complaints Results AMB Urinalysis, Automated UA Leukoctes 0 Carine/uL Last Edit by Katherin Benson on 01/15/25 13:59 UA Nitrite Negative Last Edit by Katherin Benson on 01/15/25 13:59 UA Urobilinogen 0.2 mg/dL Last Edit by Katherin Benson on 01/15/25 13:59 UA Protein 0 mg/dL Last Edit by Katherin Benson on 01/15/25 13:59 UA pH 6.5 Last Edit by Katherin Benson on 01/15/25 13:59 UA Blood 25 Demetrio/uL Last Edit by Katherin Benson on 01/15/25 13:59 UA Specific [place] 1.005 Last Edit by Katherin Benson on 01/15/25 13:59 UA Ketone Negative Last Edit by Katherin Benson on 01/15/25 13:59 UA Bilirubin 0 mg/dL Last Edit by Katherin Benson on 01/15/25 13:59 UA Glucose 0 mg/dL Last Edit by Katherin Benson on 01/15/25 13:59 Results Reviewed Results Reviewed: Laboratory Last Values Urine pH (Auto) 6.5 01/15/25 13:14 Specific [place] (Auto) 1.005 01/15/25 13:14 Urine Protein (Auto) 0 mg/dL 01/15/25 13:14 Glucose (UA)(Auto) 0 mg/dL 01/15/25 13:14 Urine Ketones (Auto) Negative 01/15/25 13:14 Urine Blood (Auto) 25 Demetrio/uL 01/15/25 13:14 Urine Nitrite (Auto) Negative 01/15/25 13:14 Urine Bilirubin (Auto) 0 mg/dL 01/15/25 13:14 Urine Urobilinogen (Auto) 0.2 mg/dL 01/15/25 13:14 Leukocyte Esterase (Auto) 0 Carine/uL 01/15/25 13:14 Date of Service: 01/06/25 CLINICAL HISTORY: R31.29 - Other microscopic hematuria US RENAL Comparison: US/SC/SR - US RENAL BI - 09/23/22 08:38 EST Findings: The right kidney measures 10.8 cm in length. The left kidney measures 10.9 cm in length. Renal cortical thickness and echotexture are within normal limits bilaterally. No hydronephrosis, shadowing calculus or cortical mass lesion. IMPRESSION: Unremarkable study. Date of Service: 09/23/22 EXAMINATION: US RETROPERITONEAL LIMITED (RENAL ONLY) CLINICAL INFORMATION: Right flank pain and urinary symptoms. Evaluate for stone pyelonephritis.. COMPARISON: Prior ultrasound most recent July 2022. TECHNIQUE: Grayscale Doppler and color flow imaging of the kidneys was performed. FINDINGS: RIGHT KIDNEY: 11.4 x 4.3 x 5.7 cm (SAG x AP x TRV). The kidney is normal in size, contour, and echogenicity. Renal cortical thickness is normal. No calculi or focal parenchymal lesions. No hydronephrosis. LEFT KIDNEY: 10.8 x 5.1 x 6.6 cm (SAG x AP x TRV). The kidney is normal in size, contour, and echogenicity. Renal cortical thickness is normal. No calculi or focal parenchymal lesions. No hydronephrosis. IMPRESSION: Normal renal ultrasound. No urinary tract calculi or evidence for pyelonephritis. Assessment & Plan Assessment & Plan (1) Microscopic hematuria: Code(s): R31.29 - Other microscopic hematuria Category: Medical Plan urine cytology, refer to Nephrology Orders: Orders Urine Cytology Today N39.0 - Urinary tract infection, site not specified AMB Urinalysis Automated Today Z13.9 - Encounter for screening, unspecified Referrals Nephrology Referral R31.29 - Other microscopic hematuria Patient Instructions: The patient had an opportunity to ask questions regarding treatment plan. The patient expressed understanding and agreement with the above treatment plan. The patient is aware they should contact our office by phone for worsening of their current condition or the appearance of new symptoms. Compliance is encouraged with any medications and followup testing that is ordered. It is a privilege to be allowed the opportunity to participate in the urologic care of your patient. If you have any questions or concerns regarding treatment for the above conditions please do not hesitate to contact me. The office telephone contact is [phone]. This note is constructed in part using voice recognition software. While every effort has been made to ensure accuracy software support representative errors may have been included. Yours sincerely, Kendall Fernandez MD Coding Level of Care Code Est Pt Level 4 (83037) Diagnoses Microscopic hematuria R31.29
== END 2025-01-15 10:05 | disposition home or self-care (01) ==
LOC: HO.HUSH 09:22
PROVIDERS: PCP Nurse Practitioner Family; Visit Provider Urology
DX: R31.29 Other microscopic hematuria (principal); Z13.9 Encounter for screening, unspecified
CPT/HCPCS: 99214

== ENCOUNTER 2025-01-15 09:22 | Outpatient (REF) | payer BC, SELFPAY ==
[2025-01-15 17:09] LABS: Urine Cytology See Pathology rpt
== END 2025-01-15 09:23 | disposition home or self-care (01) ==
LOC: HO.LAB 09:22
PROVIDERS: PCP Nurse Practitioner Family; Visit Provider Urology
DX: N39.0 Urinary tract infection, site not specified (principal)
CPT/HCPCS: 81003; 88112

== ENCOUNTER 2025-01-20 13:11 | Outpatient (AMB) | payer BC, SELFPAY ==
--- NOTE | 2025-01-20 13:11 | A.OFFVIS_ITS ---
Intake Visit Reasons: TV Ultrasound results Intake Note: cell #[phone] Allergies Linalool Allergy (Unknown, Uncoded 12/09/24 14:40) Hives Is last menstrual period known: Yes Last menstrual period: 01/15/25 [facility] Medical History Pelvic pain Abnormal uterine bleeding (AUB) Surgical History History of delivery (10/04/19) Family History Mother Uterine fibroid Social History Housing: House Alcohol intake: current Patient Tobacco Use Status: Never used Tobacco e-Cigarette/Vaping Use: Never Used Second Hand Smoke Exposure: No service: No Current occupational status: employed and unemployed Cognitive needs: No Hearing needs: No Vision needs: No Female Reproductive History Menstrual Age of Menarche: 12 Date of last menstrual period: 01/15/25 Telehealth Telehealth Telehealth Platform: [facility] Location of provider rendering services: practice address Location of patient: address on file Patient Identification confirmed using: Name, : Yes Telehealth method: video Patient verbally consented to treatment: Yes Patient verbally consented to billing insurance company: Yes Patient informed of any privacy concerns related to visit: Yes Coding
--- NOTE | 2025-01-20 13:11 | MHC.OFFVIS ---
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 Time spent included review of pertinent office notes in the electronic health record; review of laboratory and imaging results; review of personal family medical history; discussing diagnosis and plan of care with the patient; documenting the encounter in the EMR. Patient presents to discuss: Ultrasound follow up, history of heavy menstrual this past year. She reports the last 2 cycles have been normal every 31-32 days lasting 5-6 days. Also notes mid cycle discomfort mild and short lasting. Last CBC and TSH June 2024 were normal ranges. [facility] Medical History Pelvic pain Abnormal uterine bleeding (AUB) Surgical History History of delivery (10/04/19) Family History Mother Uterine fibroid Social History Housing: House Alcohol intake: current Patient Tobacco Use Status: Never used Tobacco e-Cigarette/Vaping Use: Never Used Second Hand Smoke Exposure: No service: No Current occupational status: employed and unemployed Cognitive needs: No Hearing needs: No Vision needs: No Female Reproductive History Menstrual Age of Menarche: 12 Review of Systems Const All systems reviewed & are unremarkable except as noted in HPI and below Endo Reports no additional complaints Physical Exam Const General: cooperative, healthy appearing and no acute distress Psych Appearance: well kempt Attitude: cooperative Thought process: Normal thought process present Results Reviewed Results Reviewed: [address] [address] Ultrasound Report Signed Patient: Marie Martin MR#: [id number] : 1990 Acct:[id number] Age/Sex: 34 / F ADM Date: 12/30/24 Loc: HO.US Attending Dr: Nicole Purdy CNM Ordering Physician: Nicole Purdy CNM Date of Service: 12/30/24 Procedure(s): US pelvic and transvaginal Accession Number(s): [id number] cc: Pelon Biggs-; Nicole Prudy CNM~ EXAMINATION: US PELVIS TRANSABDOMINAL AND TRANSVAGINAL HISTORY: R10.2 - Pelvic and perineal pain COMPARISON: Comparison is made with the prior examination dated 07/17/2023. TECHNIQUE: Transabdominal and endovaginal real-time 2D allen-scale ultrasound was performed. FINDINGS: Uterus: The uterus is normal in size, measuring 8.8 x 4.9 x 5.5 cm. Myometrium has a normal echotexture. No fibroids are identified. Endometrium: The endometrial stripe measures 11 mm in thickness. There are nabothian cysts in the cervix. Right ovary: The right ovary measures 1.8 x 1.8 x 1.7 cm. The right ovary is normal in size and echotexture. Left ovary: The left ovary measures 2.2 x 2.7 x 2.4 cm. The left ovary is normal in size and echotexture. Pelvic fluid: none. US/US pelvic and transvaginal IMPRESSION: Unremarkable pelvic ultrasound. 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 Call the office for a follow up for any concerns. Severiano pain, self-help measures for comfort. Keep follow up appointment for annual December 2025. The patient expressed understanding and agreement with the plan of care. All of her questions and concerns were addressed to the best of my ability. This note is constructed using voice recognition software. While every effort has been made to ensure accuracy, machine erector errors may have been included. (2) Encounter to discuss test results: Code(s): Z71.2 - Person consulting for explanation of examination or test findings Plan See ultrasound results details. IMPRESSION: Unremarkable pelvic ultrasound. Coding Level of Care Code Est Pt Level 3 (30773) Diagnoses Menorrhagia with regular cycle N92.0 Menorrhagia type: with regular cycle Encounter to discuss test results Z71.2
== END 2025-01-20 15:05 | disposition home or self-care (01) ==
LOC: HO.HWS 13:11
PROVIDERS: PCP Nurse Practitioner Family; Visit Provider Advanced Practice Midwife
DX: N92.0 Excessive and frequent menstruation with regular cycle (principal); Z71.2 Person consulting for explanation of examination or test findings
CPT/HCPCS: 99213

== ENCOUNTER 2025-02-24 13:09 | Outpatient (AMB) | payer BC, SELFPAY ==
--- NOTE | 2025-02-24 13:13 | HO.NEPHOV ---
Vital Signs 02/24/25 13:14 Height 5 ft 4 in Weight 168 lb BMI 28.8 BP 100/64 Blood Pressure Location Lt brachial Position Sitting Pulse 100 Pulse Source Pulse Oximeter Pulse Oximetry (%) 97 Oxygen Delivery Method Room Air Intake Visit Reasons: Microscopic Hematuria/ Conf Electronics Technician Required: No Accompanied by: Self / Same As Patient Allergies Linalool Allergy (Unknown, Uncoded 12/09/24 14:40) Hives Medication List - Last Reconciled 02/24/25 by Kasi Florez MD cholecalciferol (vitamin D3) 50 mcg PO DAILY HPI Comments Details: 35-year-old female presenting with microscopic hematuria. This condition has been observed intermittently for several years, with normal findings reported on a cystoscopy and kidney ultrasound approximately one year ago. The patient describes occasional flank discomfort correlating with dehydration, improving with hydration. She has a history of a childhood kidney infection treated with antibiotics. Recent renal USG was unremarkable Reports of hematuria date back to at least 2000, and there has been no accompanying proteinuria while maintaining normal kidney function. No family history of kidney disease or related abnormalities was mentioned. No h/o any skin rash, joint pains . No miscarriage. [facility] Medical History Pelvic pain Abnormal uterine bleeding (AUB) Surgical History History of delivery (10/04/19) Family History Mother Uterine fibroid Social History Housing: House Alcohol intake: current Patient Tobacco Use Status: Never used Tobacco e-Cigarette/Vaping Use: Never Used Second Hand Smoke Exposure: No service: No Current occupational status: employed and unemployed Cognitive needs: No Hearing needs: No Vision needs: No Female Reproductive History Menstrual Age of Menarche: 12 Review of Systems Const Denies fever(s) and Denies weight loss Card Denies chest pain Resp Denies cough and Denies hemoptysis GI Denies abdominal pain, Denies diarrhea and Denies nausea Musc Denies back pain Neuro Denies focal weakness Physical Exam Vital Signs: Last Vital Signs Pulse 100 02/24/25 13:14 BP 100/64 02/24/25 13:14 Pulse Ox 97 02/24/25 13:14 Oxygen Delivery Method Room Air 02/24/25 13:14 BMI result Body Mass Index 28.8 Const General: comfortable Nutritional Appearance: well nourished Orientation/consciousness: patient oriented x3 HEENT Head: No normal to inspection Mouth: moist mucous membranes Neck Neck: Yes supple and Yes no JVD Resp Auscultation: clear to auscultation bilaterally and no rales Cardio Jugular venous distension: no JVD Palpation: no palpable S3 and no palpable S4 Heart sounds: no rubs GI Palpation (GI): Soft to palpation and nontender Percussion: No Fluid wave present General: Yes no CVA tenderness Back/Spine/Pelvis Back: no CVA tenderness Skin General skin exam: no rashes or lesions noted Neuro General: patient oriented x3 Extrem General: Yes no pedal edema and No clubbing Results Reviewed Results Reviewed: Labs reviewed Nephrology Results: Renal US 01/07/25 Assessment & Plan Assessment & Plan (1) Microscopic hematuria: Comment: Micro hematuria with normal renal function and without proteinuria, and negative urological work up Code(s): R31.29 - Other microscopic hematuria Category: Medical Plan Plan for the patient involves further evaluation of microscopic hematuria to exclude benign and pathological causes, such as thin glomerular basement membrane disease or IgA nephropathy. Additional blood tests/serologies were ordered to assess renal function and other potential causes of hematuria. Follow-up is scheduled in four to six weeks to evaluate test outcomes. The patient is advised to maintain hydration and reduce salt intake. Further management will be based on the outcome of above baseline investigations. . Orders: Orders BRYSON Reflex Titer and Pattern Today R31.29 - Other microscopic hematuria Anti DNA DS Antibody Today R31.29 - Other microscopic hematuria Complement C4 Today R31.29 - Other microscopic hematuria Protein Electrophoresis, Serum Today R31.29 - Other microscopic hematuria Uric Acid Today R31.29 - Other microscopic hematuria Creatine Kinase Total Today R31.29 - Other microscopic hematuria Comprehensive Met. Panel Today R31.29 - Other microscopic hematuria Phosphorus Today R31.29 - Other microscopic hematuria Neutrophil Cytoplasma Ab Today R31.29 - Other microscopic hematuria Myeloperoxidase Antibody Today R31.29 - Other microscopic hematuria Proteinase 3 PR3 Antibodies Today R31.29 - Other microscopic hematuria Anti Glomerular Basement Memb Today R31.29 - Other microscopic hematuria Complement C3 Today R31.29 - Other microscopic hematuria Coding Level of Care Code New Pt Level 4 (21473) Diagnoses Microscopic hematuria R31.29
[2025-02-24 13:14] VITALS: BP 100/64; PULSE 100; O2SAT 97; BMI 28.8
== END 2025-02-24 13:33 | disposition home or self-care (01) ==
LOC: HO.HKA 13:10
PROVIDERS: PCP Nurse Practitioner Family; Visit Provider Internal Medicine Hypertension Specialist
DX: R31.29 Other microscopic hematuria (principal)
CPT/HCPCS: 99204

== ENCOUNTER 2025-02-24 13:09 | Outpatient (REF) | payer BC, SELFPAY ==
[2025-02-24 14:55] LABS: Alanine Aminotransferase 19 U/L (0-31); Albumin Level 4.3 g/dL (3.5-5.0); Alkaline Phosphatase 69 U/L (39-117); Anion Gap 13 (12-20); Aspartate Amino Transferase 23 U/L (5-31); Bilirubin Total 0.6 mg/dL (0.0-1.0); Blood Urea Nitrogen 12 mg/dL (9-16); Calcium 9.1 mg/dL (8.4-10.2); Carbon Dioxide 24 mmol/L (22-29); Chloride 105 mmol/L (96-108); Estimated Glomerular Filt Rate > 60; Glucose Random 111 mg/dL (60-115); Phosphorus 2.8 mg/dL (2.7-4.5); Potassium 3.9 mmol/L (3.3-5.1); Sodium 138 mmol/L (135-145); Total Protein 7.7 g/dL (6.5-8.0)
[2025-02-24 15:38] LABS: Uric Acid 4.5 mg/dL (2.4-5.7)
[2025-02-25 12:03] LABS: Anti Nuclear Antibody Screen NEGATIVE (NEGATIVE)
[2025-02-25 12:23] LABS: Neutrophil Cyto Ab Screen NEGATIVE (NEGATIVE)
[2025-02-25 20:29] LABS: Complement C3 122 mg/dL (83-193)
[2025-02-26 08:24] LABS: Prot Elec - Albumin 4.4 g/dL (3.8-4.8); Prot Elec - Alpha1 0.2 g/dL (0.2-0.3); Prot Elec - Alpha2 0.5 g/dL (0.5-0.9); Prot Elec - Beta 1 0.5 g/dL (0.4-0.6); Prot Elec - Beta 2 0.4 g/dL (0.2-0.5); Prot Elec - Gamma 1.2 g/dL (0.8-1.7); Prot Elec - Total Protein 7.2 g/dL (6.1-8.1)
[2025-02-27 13:43] LABS: Anti DNA DS Antibody 2 IU/mL; Anti Glomerular Basement Memb <1.0 AI; Myeloperoxidase Antibody <1.0 AI; Proteinase 3 PR3 Antibodies <1.0 AI
== END 2025-02-24 13:10 | disposition home or self-care (01) ==
LOC: HO.LAB 13:09
PROVIDERS: PCP Nurse Practitioner Family; Visit Provider Internal Medicine Hypertension Specialist
DX: R31.29 Other microscopic hematuria (principal)
CPT/HCPCS: 36415; 80053; 82550; 83520; 84100; 84165; 84550; 86021; 86036; 86038; 86160; 86225

== ENCOUNTER 2025-03-06 08:07 | Outpatient (AMB) | payer BC, SELFPAY ==
--- NOTE | 2025-03-06 08:11 | MHC.OFFWIV ---
Intake Vital Signs 03/06/25 08:12 Weight 168 lb BP 124/70 Blood Pressure Location Rt brachial Position Sitting Pulse 89 Pulse Source Pulse Oximeter Temp 98.8 F Temp Source Oral Pulse Oximetry (%) 98 Intake Visit Reasons: EP Coughing, brown phlegm Intake Note: Patient here for cough and fatigue that has been present for about 1 week. Patient Tobacco Use Status: Never used Tobacco Allergies Linalool Allergy (Unknown, Uncoded 12/09/24 14:40) Hives Do you need a note to return to daycare/school/sports/work: No HPI HPI Comments History of Present Illness Details 35 y/o Female patient who presents to the walk in clinic with c/o Cough and fatigue that has been present for about 1 week. She has not used any OTC cough remedies. Denies fevers, chills, nausea or vomiting. Denies any recent contact with sick person. [facility] Medical History (Updated 03/06/25 @ 08:18 by Vianney Roblero NP) Cough Pelvic pain Abnormal uterine bleeding (AUB) Surgical History History of delivery (10/04/19) Family History Mother Uterine fibroid Social History Housing: House Alcohol intake: current Patient Tobacco Use Status: Never used Tobacco e-Cigarette/Vaping Use: Never Used Second Hand Smoke Exposure: No service: No Current occupational status: employed and unemployed Cognitive needs: No Hearing needs: No Vision needs: No Female Reproductive History Menstrual Age of Menarche: 12 Review of Systems Const All systems reviewed & are unremarkable except as noted in HPI and below Physical Exam Vital Signs: Last Vital Signs Temp 98.8 F 03/06/25 08:12 Pulse 89 03/06/25 08:12 BP 124/70 03/06/25 08:12 Pulse Ox 98 03/06/25 08:12 Const General: no acute distress Nutritional Appearance: overweight Orientation/consciousness: patient oriented x3 HEENT Head: Yes normocephalic Ears: external ears normal and TM's normal bilaterally General nose exam: Normal external nose present Face and sinus: Yes sinuses nontender Mouth: moist mucous membranes Throat: Yes tonsils normal and Yes uvula midline Resp Effort & Inspection: normal respiratory effort, able to speak in complete sentences, no audible wheezes and no cough Auscultation: clear to auscultation bilaterally, no crackles, no rales, no rhonchi and no wheezes Cardio Rhythm: regular rhythm Heart sounds: S1 normal heart sound present and S2 normal heart sound present Neuro General: patient oriented x3 Assessment & Plan Assessment & Plan (1) Cough: Code(s): R05.9 - Cough, unspecified Qualifiers: Cough type: subacute Qualified Code(s): R05.2 - Subacute cough Plan: Ordered Cough medicine. Rest and hydrate well with warm fluids with honey or becky RTC if not better. Medications: New dextromethorphan-guaifenesin 5-100 mg/5 mL (Robitussin Cough-Chest Congestion DM) 10 mL PO Q4-8H PRN 1,000 mL 0RF cough R05.2 - Subacute cough Coding Level of Care Code Est Pt Level 4 (49939) Diagnoses Subacute cough R05.2 Cough type: subacute Time Spent (min) 20
[2025-03-06 08:12] VITALS: BP 124/70; PULSE 89; TEMP 37.1; O2SAT 98
== END 2025-03-06 08:51 | disposition home or self-care (01) ==
PROVIDERS: PCP Nurse Practitioner Family; Visit Provider Nurse Practitioner Family
DX: R05.2 Subacute cough (principal)

== ENCOUNTER → 2025-03-06 08:07 | Outpatient (BNVA) | payer BC, SELFPAY | PROVIDERS: PCP Nurse Practitioner Family; Visit Provider Nurse Practitioner Family ==

== ENCOUNTER 2025-03-26 11:49 | Outpatient (AMB) | payer BC, SELFPAY ==
[2025-03-26 11:55] VITALS: BP 102/72; PULSE 103; O2SAT 97; BMI 28.5
--- NOTE | 2025-03-26 11:55 | HO.NEPHOV_ITS ---
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 This condition has b een observed intermittently for several years, with normal findings reported on a cystoscopy and kidney ultrasound approximately one year ago. The patient describes occasional flank discomfort correlating with dehydration, improving with hydration. She has a history of a childhood kidney infection treated with antibiotics. Recent renal USG was unremarkable Reports of hematuria date back to at least 2000, and there has been no accompanying proteinuria while maintaining normal kidney function. No family history of kidney disease or related abnormalities was mentioned. No h/o any skin rash, joint pains . No miscarriage. 03/26/25 Doing well.Underwent work up REPLACED BY [facility] Medical History (Updated 03/06/25 @ 08:18 by Vianney Roblero NP) Cough Pelvic pain Abnormal uterine bleeding (AUB) Surgical History History of delivery (10/04/19) Family History Mother Uterine fibroid Social History Housing: House Alcohol intake: current Patient Tobacco Use Status: Never used Tobacco e-Cigarette/Vaping Use: Never Used Second Hand Smoke Exposure: No service: No Current occupational status: employed and unemployed Cognitive needs: No Hearing needs: No Vision needs: No Female Reproductive History Menstrual Age of Menarche: 12 Physical Exam Vital Signs: Last Vital Signs Pulse 103 H 03/26/25 11:55 BP 102/72 03/26/25 11:55 Pulse Ox 97 03/26/25 11:55 Oxygen Delivery Method Room Air 03/26/25 11:55 BMI result Body Mass Index 28.5 Const General: comfortable Nutritional Appearance: well nourished Orientation/consciousness: patient oriented x3 HEENT Head: No normal to inspection Mouth: moist mucous membranes Neck Neck: Yes supple and Yes no JVD Resp Auscultation: clear to auscultation bilaterally and no rales Cardio Jugular venous distension: no JVD Palpation: no palpable S3 and no palpable S4 Heart sounds: no rubs GI Palpation (GI): Soft to palpation and nontender Percussion: No Fluid wave present General: Yes no CVA tenderness Back/Spine/Pelvis Back: no CVA tenderness Skin General skin exam: no rashes or lesions noted Neuro General: patient oriented x3 Extrem General: Yes no pedal edema and No clubbing Results Reviewed Nephrology Results: Sodium 138 mmol/L (135-145) 02/24/25 Potassium 3.9 mmol/L (3.3-5.1) 02/24/25 Chloride 105 mmol/L (96-108) 02/24/25 Carbon Dioxide 24 mmol/L (22-29) 02/24/25 BUN 12 mg/dL (9-16) 02/24/25 Creatinine 0.64 mg/dL (0.5-1.4) 02/24/25 Calcium 9.1 mg/dL (8.4-10.2) 02/24/25 Phosphorus 2.8 mg/dL (2.7-4.5) 02/24/25 Renal US 01/07/25 Assessment & Plan Assessment & Plan (1) Microscopic hematuria: Comment: Micro hematuria with normal renal function and without proteinuria, and negative urological work up Code(s): R31.29 - Other microscopic hematuria Category: Medical (2) Hematuria: Comment: pt reported it has been worked up previously Code(s): R31.9 - Hematuria, unspecified Category: Medical Plan Work up essentially negative DDX :thin glomerular basement membrane disease or IgA nephropathy. Conservative management Monitor renal function/urine protein/hematuria q 6-12 months . Orders: Orders Basic Metabolic Panel 6 Months R31.9 - Hematuria, unspecified Total Protein Urine Random 6 Months R31.9 - Hematuria, unspecified UA and rflx microscopic 6 Months R31.9 - Hematuria, unspecified Creatinine Urine 6 Months R31.9 - Hematuria, unspecified Coding Level of Care Code Est Pt Level 4 (41132) Diagnoses Microscopic hematuria R31.29 Hematuria R31.9
== END 2025-03-26 12:10 | disposition home or self-care (01) ==
LOC: HO.HKA 11:50
PROVIDERS: PCP Nurse Practitioner Family; Visit Provider Internal Medicine Hypertension Specialist
DX: R31.29 Other microscopic hematuria (principal); R31.9 Hematuria, unspecified
CPT/HCPCS: 99214

== ENCOUNTER → 2025-03-26 11:49 | Outpatient (BNVA) | payer BC, SELFPAY | PROVIDERS: PCP Nurse Practitioner Family; Visit Provider Internal Medicine Hypertension Specialist ==